=== PATIENT | female | born 1940 | race African-American/Black ===

== ENCOUNTER 2016-11-15 02:42 | Inpatient (IN) | payer MEDICARE, MEDICAID ==
[2016-11-15] VITALS (7 sets, daily range): BP systolic 149–183; BP diastolic 80–101
[~2016-11-15] VITALS: Ht 165.1 cm; Wt 103.9 kg
[2016-11-15] MEDS ORDERED: FUROSEMIDE20 M1 (03:59)
[2016-11-15] MEDS ORDERED: DIPHENOXYLATE-1 EACH (03:59)
[2016-11-15] MEDS ORDERED: COMPAZINE10 MG (03:59)
[2016-11-15] MEDS ORDERED: PANTOPRAZOLE SO40 MG (03:59)
[2016-11-15] MEDS ORDERED: CARVEDILOL12.5 MG (03:59)
[2016-11-15] MEDS ORDERED: DIAZEPAM10 MG (03:59)
[2016-11-15] MEDS ORDERED: PHENYTOIN SODI100 MG (03:59)
[2016-11-15] MEDS ORDERED: POTASSIUM CHLO20 ME1 (03:59)
[2016-11-15] MEDS ORDERED: Morphine Sulfate 4mg/ml Inj IVP PRN (04:15)
[2016-11-15] MEDS ORDERED: D5 1/2NS 1,000 ML IV SCH (05:00)
[2016-11-15] MEDS ORDERED: Nitroglycerin Subl 0.4mg tab (Bottle Of 25) SL PRN (07:15)
[2016-11-15] MEDS ORDERED: Morphine Sulfate 2mg/ml Inj IVP PRN (07:15)
[2016-11-15] MEDS ORDERED: Mylanta II UD 30ml ORAL PRN (07:15)
[2016-11-15] MEDS: D5 1/2NS 1,000 ML IV SCH ×2 (08:00→21:20)
[2016-11-15 08:44] LABS: BASOPHILS % (AUTO) 0.4 % (0.0-2.0); LYMPHOCYTES % (AUTO) 14.9 % (20.0-45.0); MEAN CORPUSCULAR HEMOGLOBIN 32.6 PG (27.0-31.0); MEAN CORPUSCULAR VOLUME 99 FL (80-99); MEAN PLATELET VOLUME 7.2 FL (6.5-10.1); MONOCYTES % (AUTO) 6.4 % (1.0-10.0); NEUTROPHILS % (AUTO) 78.2 % (45.0-75.0); PLATELET COUNT 203 K/UL (150-450); RED BLOOD COUNT 4.18 M/UL (4.20-5.40); RED CELL DISTRIBUTION WIDTH 11.4 % (11.6-14.8); WHITE BLOOD COUNT 8.8 K/UL (4.8-10.8)
[2016-11-15] MEDS: Heparin 5000 units/ml inj SUBQ SCH ×2 (08:56→22:17)
[2016-11-15] MEDS ORDERED: Carvedilol 6.25mg Tab ORAL SCH (09:00)
--- NOTE | 2016-11-15 14:21 | GI Initial Consult Note ---
History of Present Illness General Date patient seen: Nov 15, 2016 Time patient seen: 10:00 Referring physician: KRISTINA Reason for Consultation: ABDOMINAL PAIN Present Illness HPI 76 year old female patient admitted here with diagnosis of LLQ abdominal pain, N /V, diarrhea, and generalized weakness. HPI is limited, patient is a poor historian. Per pt, she's been having LLQ abdominal pain x 2 days, tender to touch. Denies any N/V at this time. Last BM was yesterday, which was loose. Hx of EGD/colonoscopy and Ex-lap lysis of adhesion here at [facility] in Nov 2012. She presents today with unremarkable labs. Abd U/S and APCT pending. Home Meds Reported Medications Diphenoxylate Hcl/Atropine (DIPHENOXYLATE-ATROPINE TABLET) 1 Each Tablet, #30 11/15/16 Phenytoin Sodium Extended* (PHENYTOIN SODIUM EXTENDED*) 100 Mg Capsule, #105 11/15/16 Prochlorperazine (COMPAZINE*) 10 Mg Tablet, #45 11/15/16 Pantoprazole* (PANTOPRAZOLE*) 40 Mg Tablet.dr, #90 11/15/16 Potassium Chloride* (K-DUR*) 20 Meq Tab.er.prt, #30 11/15/16 Carvedilol* (CARVEDILOL*) 12.5 Mg Tablet, #60 11/15/16 Furosemide* (LASIX*) 20 Mg Tablet, #30 11/15/16 Diazepam* (DIAZEPAM*) 10 Mg Tablet, #60 11/15/16 Med list reviewed/reconciled: Yes Allergies: Coded Allergies: SHELLFISH DERIVED (Verified Allergy, Mild, 11/15/16) ASPIRIN (Verified Allergy, Unknown, GI UPSET. ADVISED PT NOT TO TAKE ANYMORE, 06/12/12) CALCIUM CARBONATE (Verified Allergy, Unknown, ITCHY, REDNESS, 06/12/12) PENICILLINS (Verified Allergy, Unknown, ITCHY, REDNESS, 06/12/12) MORPHINE (Verified Adverse Reaction, Mild, NAUSEA,ALTERED MENTAL STATUS, ITCHY REDNESS, 06/12/12) Patient History Limited by: medical condition - poor historian History Provided By: Patient, Medical Record PMH Narrative GERD Hemorrhoids s/p ex lap lysis adhesion seizures cataracts L hypercholesteremia HTN PNA DVT R leg pain L breast mastectomy hx of MRSA and VRE Social History: Denies: alcohol use, drug use, other, smoking Review of Systems All Other Systems: negative except mentioned in HPI Physical Exam Vital Signs Date Time Temp Pulse Resp B/P Pulse Ox O2 Delivery O2 Flow Rate FiO2 11/15/16 04:00 100 11/15/16 04:00 97.7 20 174/95 96 Room Air Sp02 EP Interpretation: reviewed Labs Laboratory Tests Test 11/15/16 08:00 White Blood Count 8.8 K/UL (4.8-10.8) Red Blood Count 4.18 M/UL (4.20-5.40) L Hemoglobin 13.7 G/DL (12.0-16.0) Hematocrit 41.5 % (37.0-47.0) Mean Corpuscular Volume 99 FL (80-99) Mean Corpuscular Hemoglobin 32.6 PG (27.0-31.0) H Mean Corpuscular Hemoglobin Concent 33.0 G/DL (32.0-36.0) Red Cell Distribution Width 11.4 % (11.6-14.8) L Platelet Count 203 K/UL (150-450) Mean Platelet Volume 7.2 FL (6.5-10.1) Neutrophils (%) (Auto) 78.2 % (45.0-75.0) H Lymphocytes (%) (Auto) 14.9 % (20.0-45.0) L Monocytes (%) (Auto) 6.4 % (1.0-10.0) Eosinophils (%) (Auto) 0.0 % (0.0-3.0) Basophils (%) (Auto) 0.4 % (0.0-2.0) General Appearance: well appearing, no apparent distress, alert Head: normocephalic EENT: normal ENT inspection Neck: supple Respiratory: normal breath sounds, no respiratory distress Cardiovascular: normal rate Gastrointestinal: normal inspection, soft, tenderness - LLQ Rectal: deferred Neurologic: alert Psychiatric: normal inspection Skin: normal inspection, normal color, no rash, warm/dry Lymphatic: normal inspection, no adenopathy Current Medications Current Medications Medications (Trade) Dose Ordered Sig/Gabriel Route PRN Reason Start Time Stop Time Status Last Admin Dose Admin Acetaminophen (Tylenol) 650 mg Q4H PRN ORAL T>100.5 11/15/16 07:15 12/15/16 07:14 Al Hydroxide/Mg Hydroxide (Mylanta II) 30 ml Q6H PRN ORAL dyspepsia 11/15/16 07:15 12/15/16 07:14 Carvedilol 6.25 mg 6.25 mg Q12HR ORAL 11/15/16 09:00 12/15/16 08:59 11/15/16 08:55 Clonidine HCl (Catapres) 0.1 mg Q6H PRN ORAL For High Blood Pressure 11/15/16 06:15 12/15/16 06:14 11/15/16 13:55 Dextrose (Dextrose 50%) STAT PRN IV Hypoglycemia 11/15/16 07:15 12/15/16 07:14 Dextrose/Sodium Chloride (D5 0.45% NS) 1,000 ml @ 75 mls/hr [id number] IV 11/15/16 08:00 12/15/16 07:59 11/15/16 08:00 Diphenhydramine HCl (Benadryl) 25 mg Q6H PRN ORAL Itching/Pruritis 11/15/16 07:15 12/15/16 07:14 Heparin Sodium (Porcine) (Heparin 5000 units/ml) 5,000 units EVERY 12 HOURS SUBQ 11/15/16 09:00 12/15/16 08:59 11/15/16 08:56 Morphine Sulfate (Morphine Sulfate) 2 mg Q4H PRN IVP severe Pain (Pain Scale 7-10) 11/15/16 07:15 11/22/16 07:14 Nitroglycerin (Ntg) 0.4 mg Q5M X 3 DOSES PRN SL Prn Chest Pain 11/15/16 07:15 12/15/16 07:14 Ondansetron HCl (Zofran) 4 mg Q6H PRN IVP Nausea & Vomiting 11/15/16 07:15 12/15/16 07:14 Polyethylene Glycol (Miralax) 17 gm HSPRN PRN ORAL Constipation 11/15/16 21:00 12/15/16 20:59 Temazepam (Restoril) 15 mg HSPRN PRN ORAL Insomnia 11/15/16 21:00 11/22/16 20:59 GI: Plan Problems: (1) Diarrhea (2) Generalized weakness (3) Abdominal pain (4) Nausea & vomiting Plan CBC unremarkable s/p EGD/colon Nov 2012 s/p ex-lap lysis of adhesion Nov 2012 ordered APCT fu abdominal U/S okay for cardiac diet after imaging studies monitor H&H, transfuse prn H2 pain mgmt monitor for diarrhea fu labs outpatient GI procedures Corinna Villarreal N.P. Nov 15, 2016 14:21
--- NOTE | 2016-11-15 16:15 | History and Physical ---
History of Present Illness General Date patient seen: Nov 15, 2016 Reason for Hospitalization: abdominal pain Present Illness HPI 76 year old lady with recent hospitalization at [place], (under different MR number: [id number]) was taken by paramedics to [facility] with CC of LLQ abdominal pain with nauea/vomiting starting one night prior to admission. Her BP was also high at [facility] with 215/127. Her CT abdomen didn't show any acute changes. Therefore she was transferred to [facility] [place] further evaluation. she still c/o vague pain all over her rod, mostly at LLQ. no vomiting, some reported diarrhea Allergies: Coded Allergies: SHELLFISH DERIVED (Verified Allergy, Mild, 11/15/16) ASPIRIN (Verified Allergy, Unknown, GI UPSET. MD ADVISED PT NOT TO TAKE ANYMORE, 06/12/12) CALCIUM CARBONATE (Verified Allergy, Unknown, ITCHY, REDNESS, 06/12/12) PENICILLINS (Verified Allergy, Unknown, ITCHY, REDNESS, 06/12/12) MORPHINE (Verified Adverse Reaction, Mild, NAUSEA,ALTERED MENTAL STATUS, ITCHY REDNESS, 06/12/12) Medication History Miscellaneous Medications Carvedilol* (Carvedilol*), (Reported) Diazepam* (Diazepam*), (Reported) Diphenoxylate Hcl/Atropine (Diphenoxylate-Atropine Tablet), (Reported) Furosemide* (Lasix*), (Reported) Pantoprazole* (Pantoprazole*), (Reported) Phenytoin Sodium Extended* (Phenytoin Sodium Extended*), (Reported) Potassium Chloride* (K-Dur*), (Reported) Prochlorperazine (Compazine*), (Reported) Patient History Healthcare decision maker Resuscitation status Advanced Directive on File Past Medical/Surgical History Past Medical/Surgical History: (1) HTN (hypertension) (2) Humerus fracture (3) Breast cancer (4) DVT (deep venous thrombosis) Review of Systems Constitutional: Reports: no symptoms Physical Exam General Appearance: WD/WN Lines, tubes and drains: peripheral HEENT: normocephalic Neck: supple Respiratory/Chest: chest wall non-tender, lungs clear Abdomen: normal bowel sounds Genitourinary/Rectal: normal genital exam Extremities: normal range of motion Last 24 Hour Vital Signs Date Time Temp Pulse Resp B/P Pulse Ox O2 Delivery O2 Flow Rate FiO2 1/23/17 14:25 88 165/101 11/15/16 13:55 164/85 11/15/16 12:00 97.7 86 17 164/85 95 Room Air 11/15/16 08:55 99 151/84 11/15/16 08:54 99 151/84 11/15/16 08:00 98.2 102 18 163/83 95 Room Air 11/15/16 07:54 163/83 11/15/16 07:46 104 11/15/16 04:00 97.7 94 20 174/95 96 Room Air 11/15/16 04:00 100 Intake and Output 11/14/16 11/15/16 19:00 07:00 Intake Total 50 ml Balance 50 ml Intake IV Total 50 ml # Voids 1 Laboratory Tests Test 11/15/16 08:00 White Blood Count 8.8 K/UL (4.8-10.8) Red Blood Count 4.18 M/UL (4.20-5.40) L Hemoglobin 13.7 G/DL (12.0-16.0) Hematocrit 41.5 % (37.0-47.0) Mean Corpuscular Volume 99 FL (80-99) Mean Corpuscular Hemoglobin 32.6 PG (27.0-31.0) H Mean Corpuscular Hemoglobin Concent 33.0 G/DL (32.0-36.0) Red Cell Distribution Width 11.4 % (11.6-14.8) L Platelet Count 203 K/UL (150-450) Mean Platelet Volume 7.2 FL (6.5-10.1) Neutrophils (%) (Auto) 78.2 % (45.0-75.0) H Lymphocytes (%) (Auto) 14.9 % (20.0-45.0) L Monocytes (%) (Auto) 6.4 % (1.0-10.0) Eosinophils (%) (Auto) 0.0 % (0.0-3.0) Basophils (%) (Auto) 0.4 % (0.0-2.0) Height (Feet): 5 Height (Inches): 5.00 Weight (Pounds): 229 Medications Current Medications Medications (Trade) Dose Ordered Sig/Gabriel Route PRN Reason Start Time Stop Time Status Last Admin Dose Admin Acetaminophen (Tylenol) 650 mg Q4H PRN ORAL T>100.5 11/15/16 07:15 12/15/16 07:14 Al Hydroxide/Mg Hydroxide (Mylanta II) 30 ml Q6H PRN ORAL dyspepsia 11/15/16 07:15 12/15/16 07:14 Carvedilol 6.25 mg 6.25 mg Q12HR ORAL 11/15/16 09:00 12/15/16 08:59 11/15/16 08:55 Clonidine HCl (Catapres) 0.1 mg Q6H PRN ORAL For High Blood Pressure 11/15/16 06:15 12/15/16 06:14 11/15/16 13:55 Dextrose (Dextrose 50%) STAT PRN IV Hypoglycemia 11/15/16 07:15 12/15/16 07:14 Dextrose/Sodium Chloride (D5 0.45% NS) 1,000 ml @ 75 mls/hr [id number] IV 11/15/16 08:00 12/15/16 07:59 11/15/16 08:00 Diphenhydramine HCl (Benadryl) 25 mg Q6H PRN ORAL Itching/Pruritis 11/15/16 07:15 12/15/16 07:14 Famotidine (Pepcid I.v.) 20 mg Q12HR IVP 11/15/16 21:00 12/15/16 20:59 Heparin Sodium (Porcine) (Heparin 5000 units/ml) 5,000 units EVERY 12 HOURS SUBQ 11/15/16 09:00 12/15/16 08:59 11/15/16 08:56 Morphine Sulfate (Morphine Sulfate) 2 mg Q4H PRN IVP severe Pain (Pain Scale 7-10) 11/15/16 07:15 11/22/16 07:14 Nitroglycerin (Ntg) 0.4 mg Q5M X 3 DOSES PRN SL Prn Chest Pain 11/15/16 07:15 12/15/16 07:14 Ondansetron HCl (Zofran) 4 mg Q6H PRN IVP Nausea & Vomiting 11/15/16 07:15 12/15/16 07:14 Polyethylene Glycol (Miralax) 17 gm HSPRN PRN ORAL Constipation 11/15/16 21:00 12/15/16 20:59 Temazepam (Restoril) 15 mg HSPRN PRN ORAL Insomnia 11/15/16 21:00 11/22/16 20:59 Assessment/Plan Problem List: (1) Abdominal pain ICD Codes: R10.9 - Unspecified abdominal pain SNOMED: 11819791 (2) Generalized weakness ICD Codes: R53.1 - Weakness SNOMED: 25098366 (3) Diarrhea ICD Codes: R19.7 - Diarrhea, unspecified SNOMED: 51367289 (4) Nausea & vomiting ICD Codes: R11.2 - Nausea with vomiting, unspecified SNOMED: 46655623 (5) Humerus fracture ICD Codes: S42.309A - Unspecified fracture of shaft of humerus, unspecified arm , initial encounter for closed fracture SNOMED: 42117671 Qualifiers: (6) HTN (hypertension) ICD Codes: I10 - Essential (primary) hypertension SNOMED: 15411460 (7) Breast cancer ICD Codes: C50.919 - Malignant neoplasm of unspecified site of unspecified female breast SNOMED: 703691791 Qualifiers: (8) DVT (deep venous thrombosis) ICD Codes: I82.409 - Acute embolism and thrombosis of unspecified deep veins of unspecified lower extremity SNOMED: 516030277 Assessment/Plan NPO IV fluids GI evaluation check tumor markers check electrolytes Na was low at [facility] Nov 15, 2016 16:15
--- NOTE | 2016-11-15 18:34 | Cardiology Progress Note ---
Assessment/Plan Assessment/Plan abd pain nausea and vomtting htn with a reactive compnenet due to wtihdrawl form clonidine hs of dvt on anticoagulation hs of breast cnacer obeistiy tyro ct reportedly neg tts patch for nwo with ccb and lisnotpril will follwo uanlbe to find other record under [id number] Objective Last 24 Hour Vital Signs Date Time Temp Pulse Resp B/P Pulse Ox O2 Delivery O2 Flow Rate FiO2 11/15/16 16:00 98.4 90 14 149/80 96 Room Air 11/15/16 14:25 88 165/101 11/15/16 13:55 164/85 11/15/16 12:00 97.7 86 17 164/85 95 Room Air 11/15/16 08:55 99 151/84 11/15/16 08:54 99 151/84 11/15/16 08:00 98.2 102 18 163/83 95 Room Air 11/15/16 07:54 163/83 11/15/16 07:46 104 11/15/16 04:00 97.7 94 20 174/95 96 Room Air 11/15/16 04:00 100 Intake and Output 11/14/16 11/15/16 19:00 07:00 Intake Total 50 ml Balance 50 ml Intake IV Total 50 ml # Voids 1 Laboratory Tests Test 11/15/16 08:00 White Blood Count 8.8 K/UL (4.8-10.8) Red Blood Count 4.18 M/UL (4.20-5.40) L Hemoglobin 13.7 G/DL (12.0-16.0) Hematocrit 41.5 % (37.0-47.0) Mean Corpuscular Volume 99 FL (80-99) Mean Corpuscular Hemoglobin 32.6 PG (27.0-31.0) H Mean Corpuscular Hemoglobin Concent 33.0 G/DL (32.0-36.0) Red Cell Distribution Width 11.4 % (11.6-14.8) L Platelet Count 203 K/UL (150-450) Mean Platelet Volume 7.2 FL (6.5-10.1) Neutrophils (%) (Auto) 78.2 % (45.0-75.0) H Lymphocytes (%) (Auto) 14.9 % (20.0-45.0) L Monocytes (%) (Auto) 6.4 % (1.0-10.0) Eosinophils (%) (Auto) 0.0 % (0.0-3.0) Basophils (%) (Auto) 0.4 % (0.0-2.0) LORY BELL Nov 15, 2016 18:34
[2016-11-15] MEDS: Famotidine 20 MG/ 2ML VIAL IVP SCH ×2 (21:00→22:13)
[2016-11-15] MEDS ORDERED: Miralax 17gm pkt ORAL PRN (21:00)
[2016-11-15 21:48] LABS: URIC ACID 7.5 mg/dL (3.0-7.5)
[2016-11-15 21:55] LABS: FREE T3 2.2 pg/mL (2.3-4.2); THYROID STIMULATING HORMONE 0.636 uIU/mL (0.300-4.500)
[2016-11-15] MEDS: Lisinopril 20mg tab ORAL SCH (22:15)
[2016-11-16] VITALS (7 sets, daily range): BP systolic 158–196; BP diastolic 93–119
[2016-11-16] MEDS ORDERED: Sodium Bicarbonate 8.4% 50ml Inj IV ONE
[2016-11-16] MEDS ORDERED: Lidocaine 1% Plain 30 ml INJ ONE
[2016-11-16] MEDS ORDERED: Heparin 2000 units/Ns 1000ml INJ ONE
--- NOTE | 2016-11-16 02:18 | Consultation ---
DATE OF CONSULTATION: 11/15/2016 CARDIOLOGY CONSULTATION: REFERRING PHYSICIAN: Rod Iqbal M.D. REASON FOR REFERRAL: Hypertension. HISTORY OF PRESENT ILLNESS: This is an elderly female, who was apparently transferred from [facility] to [facility]. The history obtained one of an elderly female presenting because of rectal pain, abdominal pain, and vomiting especially when she sits up or stands up. She apparently had an evaluation at [facility] where she was transferred after including a CT scan that shows the liver to be normal and gallbladder is surgically absent. Spleen to be normal. Normal appendix and status post mastectomy, atherosclerotic vascular disease, otherwise unremarkable abdomen. The patient was noted to have significant elevated blood pressure and therefore, this consultation requested by Dr. Iqbal. It appears that the patient has been hesitant to take the medication because of rectal pain and abdominal pain. This led to significant elevated blood pressure. She does not have any chest pain. She does not usually gets short of breath. She does wake up because of shortness of breath at times but she is not sure that she has occasional palpitations. She had dizziness at time when she sits up. PAST MEDICAL HISTORY: Extensive and includes high blood pressure. She does not have diabetes. She has had been told she has heart attack previously many years ago. She has a history of breast cancer status post mastectomy. No history of stroke or hepatitis or tuberculosis. No asthma or emphysema. She has had a history of ulcers previously. She has had some kind of kidney problems and liver problems. There is no thyroid problems. She has had a blood clot somewhere in her legs and possibly in her lungs that is not clear. She says she is not allergic to any medications. No chart indicating. MEDICATIONS: She is taking at home include hydrochlorothiazide 12.5 mg daily, hydralazine 50 mg daily, Plavix 75 mg, clonidine 0.2 every 8 hours, Lipitor 40 mg daily, Norvasc 10 mg daily, and loratadine 10 mg daily. She is on Lomotil . She is on Coumadin. She is on benazepril HCT 20 mg/12.5 mg daily, Femara, additional 10 mg of Lotensin on daily basis, Imdur 10 mg daily, amlodipine 10 mg daily, Dilantin, triamterene, hydrochlorothiazide, Ambien, and Prevacid. Unfortunately I am not sure how many of these she actually take. She reported being here to [facility] under given medical record number, unfortunately I am unable to locate those records despite medical record number in the computer system. Blood pressure here is 149/80 to 165/101 with a heart rate in the 80s to 90s, and temperature 98.4 degrees. ALLERGIES: Aspirin, calcium carbonate, morphine, penicillin, and shell fish. SOCIAL HISTORY: She denies any smoking at the present time. She used to drink alcoholic beverages but not recently. She has a remote history of crack cocaine use she says a number of years ago, but not recently. REVIEW OF SYSTEMS: GI: As mentioned nausea and vomiting. Genitourinary: Rectal pain. Pulmonary: Occasional coughing or wheezing. Constitutional: Negative. Neurologic: Negative. She is not able to walk around much although she is capable to walk around with a walker. PHYSICAL EXAMINATION: GENERAL: Shows a morbidly obese female in no respiratory distress. She is very hard to hear. NECK: Supple. No jugular venous distention. No abdominojugular reflux noted LUNGS: Appear to be clear to auscultation and percussion . CARDIAC: S1 is normal. S2 is normal. Regular rate and rhythm. No heaves, thrills, gallops, or rubs are noted. ABDOMEN: Obese. Positive bowel sounds. Nontender. EXTREMITIES: There is no clubbing, cyanosis, nor is there any edema. NEUROLOGIC: She is awake, alert, responsive, in no apparent respiratory distress. LABORATORY STUDIES: White count is 8.8, hemoglobin 13.7, and platelet count of 203,000. The remainder of laboratories from the [facility] are not available. Her blood tests from [facility] indicate that the CBC with white count 6.2, hemoglobin 14.5, and platelet 192,000. Electrolytes, sodium 127, potassium 4.2, chloride 97, bicarbonate 23, BUN 70, creatinine 1.3, and glucose 99. Calcium is 10.5. Alkaline phosphatase was 109 and ALT 40. Lipase 41. Troponin is less than 0.02. Urinalysis is positive for leukocyte esterase and 3-5 WBCs. Her blood pressure at [place] were initially is 250/127 subsequently 158/84. CT scan as mentioned there was fairly unremarkable from [place]. ASSESSMENT AND PLAN: 1. Abdominal pain . 2. Poor p.o. intake. 3. Medication noncompliance secondary to above. 4. 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 5. Obesity . 6. History of breast cancer. 7. History of deep venous thrombosis on anticoagulation. PLAN: Dr. Iqbal, this patient was seen in cardiac consultation. Unfortunately, I am unable to find the patient's old record through the number that was listed. Nevertheless, the blood pressure appears to be controlled and would adjust her medications. She should be on clonidine to avoid withdrawal hypertension. She will be started back on Norvasc and ILEANA inhibitor as well as blood pressure arose only she starts taking medications p.o. The dose of medication will be readjusted as necessary. At the present time, she is somewhat hesitant to take medications. Therefore I will start the patient on TTS patch for the time being while she is NPO to avoid withdrawal reaction if she is not able to take p.o. medications. Davon Mena M.D. DR: Loyd JOB#: [id number] CC:
[2016-11-16 02:25] LABS: APPEARANCE,URINE SLIGHTLY CLOUDY; KETONES,URINE 3+ (NEGATIVE); LEUKOCYTE ESTERASE ,URINE 3+ (NEGATIVE); NITRITE,URINE NEGATIVE (NEGATIVE); PH,URINE 5 (4.5-8.0); PROTEIN,URINE 3+ (NEGATIVE); UROBILINOGEN,URINE 1 MG/DL (0.0-1.0)
[2016-11-16 02:33] LABS: WBC,URINE 20-30 /HPF (0 - 2)
[2016-11-16 02:34] LABS: BACTERIA,URINE MODERATE /HPF; COARSE GRANULAR CASTS,URINE 0-2 /LPF; FINE GRANULAR CASTS,URINE 0-2 /LPF; HYALINE CASTS, URINE 0-2 /LPF; SQUAMOUS EPITHELIAL CELL,UR MODERATE /LPF (NONE/OCC)
[2016-11-16] MEDS: Heparin 5000 units/ml inj SUBQ SCH ×2 (09:00→21:00)
[2016-11-16] MEDS: Famotidine 20 MG/ 2ML VIAL IVP SCH ×3 (09:00→21:17)
[2016-11-16] MEDS: Lisinopril 20mg tab ORAL SCH ×2 (09:04→17:47)
--- NOTE | 2016-11-16 09:06 | Diagnostic Imaging Report ---
Indication: Abdominal pain Technique: Spiral acquisitions obtained through the abdomen and pelvis. Patient given oral contrast. No IV contrast utilized, per referring physician request.. Multiplanar reconstructions were generated. Total dose length product 989 mGycm. CTDIvol(s) 18 mGy Comparison: 10/30/2013 contrast study Findings: The appendix is normal. There is no evidence of diverticulosis or diverticulitis. There is suggestion of at least mild wall thickening of the distal sigmoid and rectum. However, no pericolonic inflammation is demonstrated. No small bowel distention or small bowel wall thickening. No free or loculated intraperitoneal air or fluid is demonstrated. The distal esophagus, stomach are unremarkable. There are multiple duodenal diverticula. Lack of IV contrast limits assessment of the solid organs. The liver is grossly unremarkable. There are cholecystectomy clips. The common bile duct is dilated, measuring 15 mm diameter. However, this is unchanged from the previous exam end of downstream obstructive pathology is evident. The pancreas, spleen, adrenals are unremarkable. The kidneys demonstrate mild contour lobulation, unchanged from the prior exam. No retroperitoneal or mesenteric mass or adenopathy. No pelvic mass or adenopathy. The uterus is absent, presumably surgically. The bladder is unremarkable. The included lung bases demonstrate minimal compressive atelectatic changes, are otherwise unremarkable. The heart is enlarged. Bones are unremarkable except for minimal degenerative spondylosis changes. The left breast is not visualized, likely surgically absent given presence of surgical clips in the anterolateral left chest wall. Small subcutaneous opacities in the anterior abdominal wall likely represent recent insulin injections Impression: Equivocal mild wall thickening of the distal sigmoid and rectum, may be an artifact of under distention but could indicate proctocolitis. Correlate with clinical findings No other acute abnormal Evidence of prior cholecystectomy. Dilated extrahepatic bile ducts, likely related to such and unchanged. Downstream obstructive pathology is not visualized although not completely excludable. Correlate with liver function tests Cardiomegaly Incidental findings as noted, including evidence of recent subcutaneous injections, evidence of prior left mastectomy, minimal compressive pulmonary parenchymal atelectatic changes, evidence of prior hysterectomy, multiple duodenal diverticula The CT scanner at [facility] is accredited by the [employer] [place] [employer] and the scans are performed using protocols designed to limit radiation exposure to as low as reasonably achievable to attain images of sufficient resolution adequate for diagnostic evaluation.
[2016-11-16 09:29] LABS: BASOPHILS % (AUTO) 0.4 % (0.0-2.0); EOSINOPHILS % (AUTO) 0.1 % (0.0-3.0); LYMPHOCYTES % (AUTO) 13.3 % (20.0-45.0); MEAN CORPUSCULAR HEMOGLOBIN 33.2 PG (27.0-31.0); MEAN CORPUSCULAR HGB CONC 34.1 G/DL (32.0-36.0); MEAN CORPUSCULAR VOLUME 97 FL (80-99); MEAN PLATELET VOLUME 6.9 FL (6.5-10.1); MONOCYTES % (AUTO) 6.5 % (1.0-10.0); NEUTROPHILS % (AUTO) 79.8 % (45.0-75.0); PLATELET COUNT 198 K/UL (150-450); RED BLOOD COUNT 4.02 M/UL (4.20-5.40); RED CELL DISTRIBUTION WIDTH 11.1 % (11.6-14.8); WHITE BLOOD COUNT 9.5 K/UL (4.8-10.8)
[2016-11-16 09:38] LABS: INR 1.3 (0.9-1.1)
[2016-11-16 09:43] LABS: ALANINE AMINOTRANSFERASE 47 U/L (3-33); AMYLASE 46 U/L (10-110); ANION GAP 16 (5-15); ASPARTATE AMINO TRANSFERASE 53 U/L (5-40); CALCIUM 10.5 mg/dL (8.6-10.2); CARBON DIOXIDE 26 mEQ/L (20-30); CHLORIDE 88 mEQ/L (98-107); CREATININE 1.3 mg/dL (0.5-0.9); HEMOLYSIS 18; LIPASE 56 U/L (< 60); POTASSIUM 4.1 mEQ/L (3.4-4.9); SODIUM 130 mEQ/L (135-145)
[2016-11-16 09:44] LABS: TROPONIN I < 0.30 ng/mL (<=0.30)
[2016-11-16 09:47] LABS: MAGNESIUM 1.5 mg/dL (1.7-2.5)
[2016-11-16] MEDS: D5 1/2NS 1,000 ML IV SCH (12:23)
--- NOTE | 2016-11-16 12:37 | Cardiology Progress Note ---
Assessment/Plan Assessment/Plan 1. Abdominal pain . 2. Poor p.o. intake. 3. Medication noncompliance secondary to above. 4. 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 5. Obesity . 6. History of breast cancer. 7. History of deep venous thrombosis on anticoagulation la ct reportedly neg tts patch for nwo lisnotpril 20 bid norvasc 5 mg bid some elevated bp related to ns loading add hydralazien may need some tiem to respond to abov e uanlbe to find other record under [id number] tele neg Subjective Cardiovascular: Denies: lightheadedness Respiratory: Reports: shortness of breath Gastrointestinal/Abdominal: Reports: abdominal pain, nausea Genitourinary: Denies: burning Objective Last 24 Hour Vital Signs Date Time Temp Pulse Resp B/P Pulse Ox O2 Delivery O2 Flow Rate FiO2 11/16/16 11:38 196/106 11/16/16 11:32 98.0 91 20 196/106 96 Room Air 11/16/16 09:04 160/98 11/16/16 08:09 99.3 90 18 160/98 99 Room Air 11/16/16 04:00 98.1 97 20 167/95 100 Room Air 11/16/16 04:00 84 11/16/16 03:36 167/95 11/16/16 00:00 98.4 96 16 170/97 96 Room Air 11/16/16 00:00 94 11/15/16 22:15 166/104 11/15/16 22:14 166/104 11/15/16 20:15 98.1 90 15 183/93 97 Room Air 11/15/16 20:00 100 11/15/16 19:30 183/93 11/15/16 16:00 98.4 90 14 149/80 96 Room Air 11/15/16 16:00 87 11/15/16 14:25 88 165/101 11/15/16 13:55 164/85 General Appearance: no apparent distress, alert Neck: supple Cardiovascular: normal rate, regular rhythm Respiratory/Chest: lungs clear, normal breath sounds Abdomen: normal bowel sounds, non tender, soft Extremities: no swelling Intake and Output 11/15/16 11/16/16 19:00 07:00 Intake Total 825 ml 390 ml Balance 825 ml 390 ml Intake Oral 240 ml IV Total 825 ml 150 ml # Voids 3 2 # Bowel Movements 1 Laboratory Tests Test 11/15/16 20:18 11/16/16 02:11 11/16/16 09:20 Plasma/Serum Osmolality Pending Uric Acid 7.5 mg/dL (3.0-7.5) Thyroid Stimulating Hormone (TSH) 0.636 uIU/mL (0.300-4.500) Free Thyroxine 1.62 ng/dL (0.86-1.85) Free Triiodothyronine 2.2 pg/mL (2.3-4.2) L Cortisol Pending Urine Color Yellow Urine Appearance Slightly cloudy Urine pH 5 (4.5-8.0) Urine Specific [place] 1.020 (1.005-1.035) Urine Protein 3+ (NEGATIVE) H Urine Glucose (UA) Negative (NEGATIVE) Urine Ketones 3+ (NEGATIVE) H Urine Occult Blood 3+ (NEGATIVE) H Urine Nitrite Negative (NEGATIVE) Urine Bilirubin Negative (NEGATIVE) Urine Urobilinogen 1 MG/DL (0.0-1.0) H Urine Leukocyte Esterase 3+ (NEGATIVE) H Urine RBC 2-4 /HPF (0 - 2) H Urine WBC 20-30 /HPF (0 - 2) H Urine Squamous Epithelial Cells Moderate /LPF (NONE/OCC) H Urine Bacteria Moderate /HPF (NONE) H Urine Hyaline Casts 0-2 /LPF (NONE) H Urine Fine Granular Casts 0-2 /LPF (NONE) H Urine Coarse Granular Casts 0-2 /LPF (NONE) H Urine Osmolality Pending Urine Random Sodium 42 mmol/L White Blood Count 9.5 K/UL (4.8-10.8) Red Blood Count 4.02 M/UL (4.20-5.40) L Hemoglobin 13.3 G/DL (12.0-16.0) Hematocrit 39.1 % (37.0-47.0) Mean Corpuscular Volume 97 FL (80-99) Mean Corpuscular Hemoglobin 33.2 PG (27.0-31.0) H Mean Corpuscular Hemoglobin Concent 34.1 G/DL (32.0-36.0) Red Cell Distribution Width 11.1 % (11.6-14.8) L Platelet Count 198 K/UL (150-450) Mean Platelet Volume 6.9 FL (6.5-10.1) Neutrophils (%) (Auto) 79.8 % (45.0-75.0) H Lymphocytes (%) (Auto) 13.3 % (20.0-45.0) L Monocytes (%) (Auto) 6.5 % (1.0-10.0) Eosinophils (%) (Auto) 0.1 % (0.0-3.0) Basophils (%) (Auto) 0.4 % (0.0-2.0) Prothrombin Time 13.0 SEC (9.30-11.50) H Prothromb Time International Ratio 1.3 (0.9-1.1) H Activated Partial Thromboplast Time 27 SEC (23-33) Sodium Level 130 mEQ/L (135-145) L Potassium Level 4.1 mEQ/L (3.4-4.9) Chloride Level 88 mEQ/L (98-107) L Carbon Dioxide Level 26 mEQ/L (20-30) Anion Gap 16 (5-15) H Blood Urea Nitrogen 22 mg/dL (7-23) Creatinine 1.3 mg/dL (0.5-0.9) H Estimat Glomerular Filtration Rate mL/min (>60) Glucose Level 162 mg/dL (74-106) H Calcium Level 10.5 mg/dL (8.6-10.2) H Phosphorus Level 3.0 mg/dL (2.5-4.8) Magnesium Level 1.5 mg/dL (1.7-2.5) L Total Bilirubin 0.8 mg/dL (0.0-1.2) Aspartate Amino Transf (AST/SGOT) 53 U/L (5-40) H Alanine Aminotransferase (ALT/SGPT) 47 U/L (3-33) H Alkaline Phosphatase 117 U/L (35-104) H Troponin I < 0.30 ng/mL (<=0.30) Total Protein 8.0 g/dL (6.6-8.7) Albumin 4.0 g/dL (3.5-5.2) Globulin 4.0 g/dL Albumin/Globulin Ratio 1.0 (1.0-2.7) Amylase Level 46 U/L (10-110) Lipase 56 U/L (< 60) LORY BELL Nov 16, 2016 12:37
[2016-11-16] MEDS: HydrALAZINE 50mg tab ORAL SCH ×2 (14:04→21:17)
[2016-11-16] MEDS ORDERED: Bisacodyl EC 5mg tab ORAL ONE (16:00)
[2016-11-16] MEDS ORDERED: Polyethylene Glycol 238gm bottle ORAL ONE (16:00)
--- NOTE | 2016-11-16 16:27 | GI Progress Note ---
Assessment/Plan Problems: (1) Sigmoid thickening ICD Codes: K63.9 - Disease of intestine, unspecified SNOMED: 983943467 (2) Abdominal pain ICD Codes: R10.9 - Unspecified abdominal pain SNOMED: 57884291 (3) Nausea & vomiting ICD Codes: R11.2 - Nausea with vomiting, unspecified SNOMED: 64770579 (4) Generalized weakness ICD Codes: R53.1 - Weakness SNOMED: [id number] Status: stable Status Narrative Discussed with Dr. Murray. Assessment/Plan CBC unremarkable s/p EGD/colon Nov 2012 s/p ex-lap lysis of adhesion Nov [address] noted pt scheduled for colonoscopy tomorrow - CLD today, NPO @ [facility]. fu abdominal U/S monitor H&H, transfuse prn H2 pain mgmt fu labs Subjective Gastrointestinal/Abdominal: Reports: abdominal pain Subjective rectal pain Objective Last 24 Hour Vital Signs Date Time Temp Pulse Resp B/P Pulse Ox O2 Delivery O2 Flow Rate FiO2 11/16/16 16:00 97.9 92 22 158/93 96 Room Air 11/16/16 14:04 166/104 11/16/16 12:47 91 166/104 11/16/16 12:45 166/104 11/16/16 12:00 94 11/16/16 11:38 196/106 11/16/16 11:32 98.0 91 20 196/106 96 Room Air 11/16/16 09:04 160/98 11/16/16 08:09 99.3 90 18 160/98 99 Room Air 11/16/16 04:00 98.1 97 20 167/95 100 Room Air 11/16/16 04:00 84 11/16/16 03:36 167/95 11/16/16 00:00 98.4 96 16 170/97 96 Room Air 11/16/16 00:00 94 11/15/16 22:15 166/104 11/15/16 22:14 166/104 11/15/16 20:15 98.1 90 15 183/93 97 Room Air 11/15/16 20:00 100 11/15/16 19:30 183/93 Intake and Output 11/15/16 11/16/16 19:00 07:00 Intake Total 825 ml 390 ml Balance 825 ml 390 ml Intake Oral 240 ml IV Total 825 ml 150 ml # Voids 3 2 # Bowel Movements 1 Laboratory Tests Test 11/15/16 20:18 11/16/16 02:11 11/16/16 09:20 Plasma/Serum Osmolality Pending Uric Acid 7.5 mg/dL (3.0-7.5) Thyroid Stimulating Hormone (TSH) 0.636 uIU/mL (0.300-4.500) Free Thyroxine 1.62 ng/dL (0.86-1.85) Free Triiodothyronine 2.2 pg/mL (2.3-4.2) L Cortisol Pending Urine Color Yellow Urine Appearance Slightly cloudy Urine pH 5 (4.5-8.0) Urine Specific [place] 1.020 (1.005-1.035) Urine Protein 3+ (NEGATIVE) H Urine Glucose (UA) Negative (NEGATIVE) Urine Ketones 3+ (NEGATIVE) H Urine Occult Blood 3+ (NEGATIVE) H Urine Nitrite Negative (NEGATIVE) Urine Bilirubin Negative (NEGATIVE) Urine Urobilinogen 1 MG/DL (0.0-1.0) H Urine Leukocyte Esterase 3+ (NEGATIVE) H Urine RBC 2-4 /HPF (0 - 2) H Urine WBC 20-30 /HPF (0 - 2) H Urine Squamous Epithelial Cells Moderate /LPF (NONE/OCC) H Urine Bacteria Moderate /HPF (NONE) H Urine Hyaline Casts 0-2 /LPF (NONE) H Urine Fine Granular Casts 0-2 /LPF (NONE) H Urine Coarse Granular Casts 0-2 /LPF (NONE) H Urine Osmolality Pending Urine Random Sodium 42 mmol/L White Blood Count 9.5 K/UL (4.8-10.8) Red Blood Count 4.02 M/UL (4.20-5.40) L Hemoglobin 13.3 G/DL (12.0-16.0) Hematocrit 39.1 % (37.0-47.0) Mean Corpuscular Volume 97 FL (80-99) Mean Corpuscular Hemoglobin 33.2 PG (27.0-31.0) H Mean Corpuscular Hemoglobin Concent 34.1 G/DL (32.0-36.0) Red Cell Distribution Width 11.1 % (11.6-14.8) L Platelet Count 198 K/UL (150-450) Mean Platelet Volume 6.9 FL (6.5-10.1) Neutrophils (%) (Auto) 79.8 % (45.0-75.0) H Lymphocytes (%) (Auto) 13.3 % (20.0-45.0) L Monocytes (%) (Auto) 6.5 % (1.0-10.0) Eosinophils (%) (Auto) 0.1 % (0.0-3.0) Basophils (%) (Auto) 0.4 % (0.0-2.0) Prothrombin Time 13.0 SEC (9.30-11.50) H Prothromb Time International Ratio 1.3 (0.9-1.1) H Activated Partial Thromboplast Time 27 SEC (23-33) Sodium Level 130 mEQ/L (135-145) L Potassium Level 4.1 mEQ/L (3.4-4.9) Chloride Level 88 mEQ/L (98-107) L Carbon Dioxide Level 26 mEQ/L (20-30) Anion Gap 16 (5-15) H Blood Urea Nitrogen 22 mg/dL (7-23) Creatinine 1.3 mg/dL (0.5-0.9) H Estimat Glomerular Filtration Rate mL/min (>60) Glucose Level 162 mg/dL (74-106) H Calcium Level 10.5 mg/dL (8.6-10.2) H Phosphorus Level 3.0 mg/dL (2.5-4.8) Magnesium Level 1.5 mg/dL (1.7-2.5) L Total Bilirubin 0.8 mg/dL (0.0-1.2) Aspartate Amino Transf (AST/SGOT) 53 U/L (5-40) H Alanine Aminotransferase (ALT/SGPT) 47 U/L (3-33) H Alkaline Phosphatase 117 U/L (35-104) H Troponin I < 0.30 ng/mL (<=0.30) Total Protein 8.0 g/dL (6.6-8.7) Albumin 4.0 g/dL (3.5-5.2) Globulin 4.0 g/dL Albumin/Globulin Ratio 1.0 (1.0-2.7) Amylase Level 46 U/L (10-110) Lipase 56 U/L (< 60) Height (Feet): 5 Height (Inches): 5.00 Weight (Pounds): 229 General Appearance: no apparent distress, obese Cardiovascular: normal rate Respiratory/Chest: normal breath sounds, no respiratory distress Abdominal Exam: normal bowel sounds, non tender, soft Objective Procedure: CT Abdomen Pelvis WO Contrast Indication: Abdominal pain Impression: Equivocal mild wall thickening of the distal sigmoid and rectum, may be an artifact of under distention but could indicate proctocolitis. Correlate with clinical findings No other acute abnormal Evidence of prior cholecystectomy. Dilated extrahepatic bile ducts, likely related to such and unchanged. Downstream obstructive pathology is not visualized although not completely excludable. Correlate with liver function tests Cardiomegaly Incidental findings as noted, including evidence of recent subcutaneous injections, evidence of prior left mastectomy, minimal compressive pulmonary parenchymal atelectatic changes, evidence of prior hysterectomy, multiple duodenal diverticula Corinna Villarreal N.P. Nov 16, 2016 16:27
--- NOTE | 2016-11-16 17:20 | Pulmonology Progress Note ---
Assessment/Plan Problems: (1) Abdominal pain (2) Generalized weakness (3) Diarrhea (4) Nausea & vomiting (5) Humerus fracture (6) HTN (hypertension) (7) Breast cancer (8) DVT (deep venous thrombosis) Assessment/Plan bp is better controlled still not eating well. f/u Gi recommendation pain control pt/ot Subjective ROS Limited/Unobtainable: No Constitutional: Reports: no symptoms HEENT: Repors: no symptoms Respiratory: Reports: no symptoms Cardiovascular: Reports: no symptoms Allergies: Coded Allergies: SHELLFISH DERIVED (Verified Allergy, Mild, 11/15/16) ASPIRIN (Verified Allergy, Unknown, GI UPSET. MD ADVISED PT NOT TO TAKE ANYMORE, 06/12/12) CALCIUM CARBONATE (Verified Allergy, Unknown, ITCHY, REDNESS, 06/12/12) PENICILLINS (Verified Allergy, Unknown, ITCHY, REDNESS, 06/12/12) MORPHINE (Verified Adverse Reaction, Mild, NAUSEA,ALTERED MENTAL STATUS, ITCHY REDNESS, 06/12/12) Objective Last 24 Hour Vital Signs Date Time Temp Pulse Resp B/P Pulse Ox O2 Delivery O2 Flow Rate FiO2 11/16/16 16:00 97.9 92 22 158/93 96 Room Air 11/16/16 14:04 166/104 11/16/16 12:47 91 166/104 11/16/16 12:45 166/104 11/16/16 12:00 94 11/16/16 11:38 196/106 11/16/16 11:32 98.0 91 20 196/106 96 Room Air 11/16/16 09:04 160/98 11/16/16 08:09 99.3 90 18 160/98 99 Room Air 11/16/16 04:00 98.1 97 20 167/95 100 Room Air 11/16/16 04:00 84 11/16/16 03:36 167/95 11/16/16 00:00 98.4 96 16 170/97 96 Room Air 11/16/16 00:00 94 11/15/16 22:15 166/104 11/15/16 22:14 166/104 11/15/16 20:15 98.1 90 15 183/93 97 Room Air 11/15/16 20:00 100 11/15/16 19:30 183/93 Intake and Output 11/15/16 11/16/16 19:00 07:00 Intake Total 825 ml 390 ml Balance 825 ml 390 ml Intake Oral 240 ml IV Total 825 ml 150 ml # Voids 3 2 # Bowel Movements 1 General Appearance: WD/WN HEENT: normocephalic, atraumatic Respiratory/Chest: chest wall non-tender, lungs clear Cardiovascular: normal peripheral pulses, normal rate Abdomen: normal bowel sounds, soft, non tender Extremities: no cyanosis, no clubbing 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 Laboratory Tests 11/15/16 20:18: Plasma/Serum Osmolality [Pending], Uric Acid 7.5, Thyroid Stimulating Hormone ( TSH) 0.636, Free Thyroxine 1.62, Free Triiodothyronine 2.2L, Cortisol [Pending] 11/16/16 02:11: Urine Color Yellow, Urine Appearance Slightly cloudy, Urine pH 5, Urine Specific [place] 1.020, Urine Protein 3+H, Urine Glucose (UA) Negative, Urine Ketones 3+H, Urine Occult Blood 3+H, Urine Nitrite Negative, Urine Bilirubin Negative, Urine Urobilinogen 1H, Urine Leukocyte Esterase 3+H, Urine RBC 2-4H, Urine WBC 20-30H, Urine Squamous Epithelial Cells ModerateH, Urine Bacteria ModerateH, Urine Hyaline Casts 0-2H, Urine Fine Granular Casts 0-2H, Urine Coarse Granular Casts 0-2H, Urine Osmolality [Pending], Urine Random Sodium 42 11/16/16 09:20: White Blood Count 9.5, Red Blood Count 4.02L, Hemoglobin 13.3, Hematocrit 39.1, Mean Corpuscular Volume 97, Mean Corpuscular Hemoglobin 33.2H, Mean Corpuscular Hemoglobin Concent 34.1, Red Cell Distribution Width 11.1L, Platelet Count 198, Mean Platelet Volume 6.9, Neutrophils (%) (Auto) 79.8H, Lymphocytes (%) (Auto) 13.3L, Monocytes (%) (Auto) 6.5, Eosinophils (%) (Auto) 0.1, Basophils (%) (Auto ) 0.4, Prothrombin Time 13.0H, Prothromb Time International Ratio 1.3H, Activated Partial Thromboplast Time 27, Sodium Level 130L, Potassium Level 4.1, Chloride Level 88L, Carbon Dioxide Level 26, Anion Gap 16H, Blood Urea Nitrogen 22, Creatinine 1.3H, Estimat Glomerular Filtration Rate , Glucose Level 162H, Calcium Level 10.5H, Phosphorus Level 3.0, Magnesium Level 1.5L, Total Bilirubin 0.8, Aspartate Amino Transf (AST/SGOT) 53H, Alanine Aminotransferase ( ALT/SGPT) 47H, Alkaline Phosphatase 117H, Troponin I < 0.30, Total Protein 8.0, Albumin 4.0, Globulin 4.0, Albumin/Globulin Ratio 1.0, Amylase Level 46, Lipase 56 Current Medications Medications (Trade) Dose Ordered Sig/Gabriel Route PRN Reason Start Time Stop Time Status Last Admin Dose Admin Acetaminophen (Tylenol) 650 mg Q4H PRN ORAL T>100.5 11/15/16 07:15 12/15/16 07:14 Al Hydroxide/Mg Hydroxide (Mylanta II) 30 ml Q6H PRN ORAL dyspepsia 11/15/16 07:15 12/15/16 07:14 Amlodipine Besylate (Norvasc) 5 mg BID ORAL 11/16/16 18:00 12/16/16 17:59 Clonidine HCl (Catapres TTS-2) 1 patch QWEEK TDERMAL 11/15/16 21:00 12/15/16 20:59 11/15/16 22:14 Clonidine HCl 0.1 mg 0.1 mg Q6H PRN ORAL For High Blood Pressure 11/15/16 06:15 12/15/16 06:14 11/16/16 11:38 Dextrose (Dextrose 50%) STAT PRN IV Hypoglycemia 11/15/16 07:15 12/15/16 07:14 Dextrose/Sodium Chloride (D5 0.45% NS) 1,000 ml @ 75 mls/hr [id number] IV 11/15/16 08:00 12/15/16 07:59 11/16/16 12:23 Diphenhydramine HCl (Benadryl) 25 mg Q6H PRN ORAL Itching/Pruritis 11/15/16 07:15 12/15/16 07:14 Famotidine (Pepcid I.v.) 20 mg Q12HR IVP 11/15/16 21:00 12/15/16 20:59 Heparin Sodium (Porcine) (Heparin 5000 units/ml) 5,000 units EVERY 12 HOURS SUBQ 11/15/16 09:00 12/15/16 08:59 11/15/16 22:17 Hydralazine HCl (Apresoline) 50 mg Q8HR ORAL 11/16/16 14:00 12/16/16 13:59 11/16/16 14:04 Lisinopril (Prinivil) 20 mg BID ORAL 11/15/16 21:00 12/15/16 20:59 11/16/16 09:04 Morphine Sulfate (Morphine Sulfate) 2 mg Q4H PRN IVP severe Pain (Pain Scale 7-10) 11/15/16 07:15 11/22/16 07:14 Nitroglycerin (Ntg) 0.4 mg Q5M X 3 DOSES PRN SL Prn Chest Pain 11/15/16 07:15 12/15/16 07:14 Ondansetron HCl (Zofran) 4 mg Q6H PRN IVP Nausea & Vomiting 11/15/16 07:15 12/15/16 07:14 Polyethylene Glycol (Miralax) 17 gm HSPRN PRN ORAL Constipation 11/15/16 21:00 12/15/16 20:59 Temazepam (Restoril) 15 mg HSPRN PRN ORAL Insomnia 11/15/16 21:00 11/22/16 20:59 ISAURA GARCIA Nov 16, 2016 17:20
--- NOTE | 2016-11-16 19:13 | Consultation ---
Consult Note Consult Note asked to evaluate at the request of Dr Iqbal for renal failure and electrolyte imbalances 76 year old lady with recent hospitalization at [place], (under different MR number: [id number]) was taken by paramedics to [facility] with CC of LLQ abdominal pain with nauea/vomiting starting one night prior to admission. Her BP was also high at [place] with 215/127. Her CT abdomen didn't show any acute changes. Therefore she was transferred to [facility] for further evaluation. she still c/o vague pain all over her rod, mostly at LLQ. no vomiting, some reported diarrhea Allergies: Coded Allergies: SHELLFISH DERIVED (Verified Allergy, Mild, 11/15/16) ASPIRIN (Verified Allergy, Unknown, GI UPSET. MD ADVISED PT NOT TO TAKE ANYMORE, 06/12/12) CALCIUM CARBONATE (Verified Allergy, Unknown, ITCHY, REDNESS, 06/12/12) PENICILLINS (Verified Allergy, Unknown, ITCHY, REDNESS, 06/12/12) MORPHINE (Verified Adverse Reaction, Mild, NAUSEA,ALTERED MENTAL STATUS, ITCHY REDNESS, 06/12/12) Patient examined , data reviewed Assessment/Plan Status Renal failure- Low Mag - Low Na- High Ca- HTN DM other: (1) Abdominal pain (2) Generalized weakness (3) Diarrhea (4) Nausea & vomiting (5) Humerus fracture (6) Breast cancer (7) DVT (deep venous thrombosis) Plan: Mag IV change IV to NS- Monitor renal parameters. Electrolytes, Ca and Phos Avoid Nephrotoxics- Adjust BP meds- VY ALMANZA Nov 16, 2016 19:13
[2016-11-17] VITALS (11 sets, daily range): BP systolic 144–165; BP diastolic 76–102
[2016-11-17] MEDS: HydrALAZINE 50mg tab ORAL SCH ×3 (05:57→21:43)
[2016-11-17 07:41] LABS: BASOPHILS % (AUTO) 0.5 % (0.0-2.0); EOSINOPHILS % (AUTO) 0.4 % (0.0-3.0); LYMPHOCYTES % (AUTO) 13.4 % (20.0-45.0); MEAN CORPUSCULAR HEMOGLOBIN 33.2 PG (27.0-31.0); MEAN CORPUSCULAR HGB CONC 34.9 G/DL (32.0-36.0); MEAN CORPUSCULAR VOLUME 95 FL (80-99); MEAN PLATELET VOLUME 7.1 FL (6.5-10.1); MONOCYTES % (AUTO) 9.5 % (1.0-10.0); NEUTROPHILS % (AUTO) 76.2 % (45.0-75.0); PLATELET COUNT 171 K/UL (150-450); RED BLOOD COUNT 3.49 M/UL (4.20-5.40); RED CELL DISTRIBUTION WIDTH 11.3 % (11.6-14.8); WHITE BLOOD COUNT 12.3 K/UL (4.8-10.8)
[2016-11-17 07:45] LABS: INR 1.3 (0.9-1.1); PROTHROMBIN TIME 13.4 SEC (9.30-11.50)
[2016-11-17 07:51] LABS: HEMOGLOBIN A1C 5.6 % (< 6.0)
[2016-11-17 07:54] LABS: ALANINE AMINOTRANSFERASE 43 U/L (3-33); ANION GAP 17 (5-15); ASPARTATE AMINO TRANSFERASE 42 U/L (5-40); CALCIUM 9.8 mg/dL (8.6-10.2); CARBON DIOXIDE 23 mEQ/L (20-30); CHLORIDE 90 mEQ/L (98-107); CHOLESTEROL 193 mg/dL (< 200); CRP QUANT 3.8 mg/dL (< 0.5); HEMOLYSIS 1; LDL CHOLESTEROL (CALC.) 115 mg/dL (60-99); MAGNESIUM 2.1 mg/dL (1.7-2.5); PHOSPHORUS 2.4 mg/dL (2.5-4.8); POTASSIUM 3.3 mEQ/L (3.4-4.9); SODIUM 130 mEQ/L (135-145); TOTAL PROTEIN 6.9 g/dL (6.6-8.7); URIC ACID 5.8 mg/dL (3.0-7.5)
[2016-11-17] MEDS: Lisinopril 20mg tab ORAL SCH ×2 (08:52→18:12)
[2016-11-17] MEDS: Famotidine 20 MG/ 2ML VIAL IVP SCH ×2 (08:52→21:43)
[2016-11-17] MEDS: Heparin 5000 units/ml inj SUBQ SCH ×2 (08:52→21:48)
--- NOTE | 2016-11-17 11:47 | Pre-Procedure Note/Attestation ---
Pre-Procedure Note/Attestation Complete Prior to Procedure Planned Procedure: not applicable Procedure Narrative: colonoscopy Indications for Procedure Pre-Operative Diagnosis: anemia Attestation I attest that I discussed the nature of the procedure; its benefits; risks and complications; and alternatives (and the risks and benefits of such alternatives ), prior to the procedure, with the patient (or the patient's legal healthcare sales representative). I attest that, if there was a reasonable possibility of needing a blood transfusion, the patient (or the patient's legal healthcare sales representative) was given the [facility] standardized written summary, pursuant to the [place] Blood Safety Act ([place] Health and Safety Code # 1645, as amended). I attest that I re-evaluated the patient just prior to the surgery and that there has been no change in the patient's H&P, except as documented below: HETAL LI Nov 17, 2016 11:47
--- NOTE | 2016-11-17 11:58 | Anethesia Preoperative Eval ---
Anesthesia Pre-op PMH/ROS General Date of Evaluation: Nov 17, 2016 Time of Evaluation: 11:57 Anesthesiologist: alexys ASA Score: ASA 3 Mallampati Score Class I : Soft palate, uvula, fauces, pillars visible Class II: Soft palate, uvula, fauces visible Class III: Soft palate, base of uvula visible Class IV: Only hard plate visible Mallampati Classification: Class III Surgeon: garett Diagnosis: anemia Surgical Procedure: colonoscopy Family History: no anesthesia problems Allergies: Coded Allergies: SHELLFISH DERIVED (Verified Allergy, Mild, 11/15/16) ASPIRIN (Verified Allergy, Unknown, GI UPSET. MD ADVISED PT NOT TO TAKE ANYMORE, 06/12/12) CALCIUM CARBONATE (Verified Allergy, Unknown, ITCHY, REDNESS, 06/12/12) PENICILLINS (Verified Allergy, Unknown, ITCHY, REDNESS, 06/12/12) MORPHINE (Verified Adverse Reaction, Mild, NAUSEA,ALTERED MENTAL STATUS, ITCHY REDNESS, 06/12/12) Medications: see eMAR Past Medical History Cardiovascular: Reports: HTN Pulmonary: Denies: COPD, DONG, asthma, other Neurologic/Psychiatric: Denies: CVA, TIA, dementia, depression/anxiety, other Endocrine: Denies: DM, hypothyroidism, other, steroids HEENT: Denies: [place] (L), [place] (R), cataract (L), cataract (R), glaucoma, other Hematology/Immune: Reports: anemia Other: obesity PMH Narrative: 1. Abdominal pain . 2. Poor p.o. intake. 3. Medication noncompliance secondary to above. 4. 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 5. Obesity . 6. History of breast cancer. 7. History of deep venous thrombosis on anticoagulation Anesthesia Pre-op Phys. Exam Physician Exam Last Vital Signs Date Time Temp Pulse Resp B/P Pulse Ox O2 Delivery O2 Flow Rate FiO2 11/17/16 08:52 99 155/76 11/17/16 08:28 97.7 20 97 Room Air Constitutional: NAD Neurologic: CN 2-12 intact Cardiovascular: RRR Respiratory: CTA Gastrointestinal: S/NT/ND Airway Exam Dentures: no lower, no upper Anesthesia Pre-op A/P Labs Hematology Test 11/17/16 06:40 White Blood Count 12.3 K/UL (4.8-10.8) H Red Blood Count 3.49 M/UL (4.20-5.40) L Hemoglobin 11.6 G/DL (12.0-16.0) L Hematocrit 33.2 % (37.0-47.0) L Mean Corpuscular Volume 95 FL (80-99) Mean Corpuscular Hemoglobin 33.2 PG (27.0-31.0) H Mean Corpuscular Hemoglobin Concent 34.9 G/DL (32.0-36.0) Red Cell Distribution Width 11.3 % (11.6-14.8) L Platelet Count 171 K/UL (150-450) Mean Platelet Volume 7.1 FL (6.5-10.1) Neutrophils (%) (Auto) 76.2 % (45.0-75.0) H Lymphocytes (%) (Auto) 13.4 % (20.0-45.0) L Monocytes (%) (Auto) 9.5 % (1.0-10.0) Eosinophils (%) (Auto) 0.4 % (0.0-3.0) Basophils (%) (Auto) 0.5 % (0.0-2.0) Coagulation Test 11/17/16 06:40 Prothrombin Time 13.4 SEC (9.30-11.50) H Prothromb Time International Ratio 1.3 (0.9-1.1) H Activated Partial Thromboplast Time 28 SEC (23-33) Chemistry Test 11/17/16 06:40 Sodium Level 130 mEQ/L (135-145) L Potassium Level 3.3 mEQ/L (3.4-4.9) L Chloride Level 90 mEQ/L (98-107) L Carbon Dioxide Level 23 mEQ/L (20-30) Anion Gap 17 (5-15) H Blood Urea Nitrogen 16 mg/dL (7-23) Creatinine 1.0 mg/dL (0.5-0.9) H Estimat Glomerular Filtration Rate mL/min (>60) Glucose Level 130 mg/dL (74-106) H Hemoglobin A1c 5.6 % (< 6.0) Uric Acid 5.8 mg/dL (3.0-7.5) Calcium Level 9.8 mg/dL (8.6-10.2) Phosphorus Level 2.4 mg/dL (2.5-4.8) L Magnesium Level 2.1 mg/dL (1.7-2.5) Total Bilirubin 0.7 mg/dL (0.0-1.2) Gamma Glutamyl Transpeptidase 274 U/L (5-36) H Aspartate Amino Transf (AST/SGOT) 42 U/L (5-40) H Alanine Aminotransferase (ALT/SGPT) 43 U/L (3-33) H Alkaline Phosphatase 99 U/L (35-104) C-Reactive Protein, Quantitative 3.8 mg/dL (< 0.5) H Pro-B-Type Natriuretic Peptide 575 pg/mL (0-450) H Total Protein 6.9 g/dL (6.6-8.7) Albumin 3.5 g/dL (3.5-5.2) Globulin 3.4 g/dL Albumin/Globulin Ratio 1.0 (1.0-2.7) Triglycerides Level 72 mg/dL (< 150) Cholesterol Level 193 mg/dL (< 200) LDL Cholesterol 115 mg/dL (60-99) H HDL Cholesterol 64 mg/dL (> 60) H Cholesterol/HDL Ratio 3.0 (3.3-4.4) L Risk Assessment & Plan Plan: mac Status Change Before Surgery: No Pre-Antibiotics Drug: none JOSH AARON CRNA Nov 17, 2016 11:58
[2016-11-17] MEDS ORDERED: LR 1000ml ONE (12:00)
[2016-11-17] MEDS ORDERED: Propofol 10mg/ml 20ml IV ONE (12:00)
[2016-11-17] MEDS ORDERED: Lidocaine 1% MPF 10mg/ml 5ml ONE (12:00)
--- NOTE | 2016-11-17 12:22 | General Progress Note ---
Assessment/Plan Status: stable Assessment/Plan Status: Renal failure- Cr lower Low Mag - Low Na- High Ca- resolved HTN DM other: (1) Abdominal pain (2) Generalized weakness (3) Diarrhea (4) Nausea & vomiting (5) Humerus fracture (6) Breast cancer (7) DVT (deep venous thrombosis) Plan: Mag IV change IV to NS- Monitor renal parameters. Electrolytes, Ca and Phos Avoid Nephrotoxics- Adjust BP meds- Subjective ROS Limited/Unobtainable: No Constitutional: Reports: malaise Allergies: Coded Allergies: SHELLFISH DERIVED (Verified Allergy, Mild, 11/15/16) ASPIRIN (Verified Allergy, Unknown, GI UPSET. MD ADVISED PT NOT TO TAKE ANYMORE, 06/12/12) CALCIUM CARBONATE (Verified Allergy, Unknown, ITCHY, REDNESS, 06/12/12) PENICILLINS (Verified Allergy, Unknown, ITCHY, REDNESS, 06/12/12) MORPHINE (Verified Adverse Reaction, Mild, NAUSEA,ALTERED MENTAL STATUS, ITCHY REDNESS, 06/12/12) Objective Last 24 Hour Vital Signs Date Time Temp Pulse Resp B/P Pulse Ox O2 Delivery O2 Flow Rate FiO2 11/17/16 12:06 98.1 91 20 165/92 98 Room Air 11/17/16 08:52 99 155/76 11/17/16 08:52 155/76 11/17/16 08:28 97.7 99 20 155/76 97 Room Air 11/17/16 05:57 145/85 11/17/16 04:23 97.0 100 20 144/88 Room Air 11/17/16 00:25 97.0 103 20 152/98 99 Room Air 11/16/16 21:17 180/119 11/16/16 20:00 97.8 94 19 180/119 97 Room Air 11/16/16 17:47 92 158/93 11/16/16 17:47 158/93 11/16/16 16:00 97.9 92 22 158/93 96 Room Air 11/16/16 14:04 166/104 11/16/16 12:47 91 166/104 11/16/16 12:45 166/104 Intake and Output 11/16/16 11/17/16 19:00 07:00 Intake Total 525 ml 1250 ml Balance 525 ml 1250 ml Intake Oral 150 ml 300 ml IV Total 375 ml 950 ml # Bowel Movements 13 Laboratory Tests 11/17/16 06:40: White Blood Count 12.3H, Red Blood Count 3.49L, Hemoglobin 11.6L, Hematocrit 33.2L, Mean Corpuscular Volume 95, Mean Corpuscular Hemoglobin 33.2H, Mean Corpuscular Hemoglobin Concent 34.9, Red Cell Distribution Width 11.3L, Platelet Count 171, Mean Platelet Volume 7.1, Neutrophils (%) (Auto) 76.2H, Lymphocytes (%) (Auto) 13.4L, Monocytes (%) (Auto) 9.5, Eosinophils (%) (Auto) 0.4, Basophils (%) (Auto) 0.5, Prothrombin Time 13.4H, Prothromb Time International Ratio 1.3H, Activated Partial Thromboplast Time 28, Sodium Level 130L, Potassium Level 3.3L, Chloride Level 90L, Carbon Dioxide Level 23, Anion Gap 17H, Blood Urea Nitrogen 16, Creatinine 1.0H, Estimat Glomerular Filtration Rate , Glucose Level 130H, Hemoglobin A1c 5.6, Uric Acid 5.8, Calcium Level 9.8 , Phosphorus Level 2.4L, Magnesium Level 2.1, Total Bilirubin 0.7, Gamma Glutamyl Transpeptidase 274H, Aspartate Amino Transf (AST/SGOT) 42H, Alanine Aminotransferase (ALT/SGPT) 43H, Alkaline Phosphatase 99, C-Reactive Protein, Quantitative 3.8H, Pro-B-Type Natriuretic Peptide 575H, Total Protein 6.9, Albumin 3.5, Globulin 3.4, Albumin/Globulin Ratio 1.0, Triglycerides Level 72, Cholesterol Level 193, LDL Cholesterol 115H, HDL Cholesterol 64H, Cholesterol/ HDL Ratio 3.0L Height (Feet): 5 Height (Inches): 5.00 Weight (Pounds): 229 General Appearance: no apparent distress, lethargic Respiratory/Chest: lungs clear Abdomen: soft Objective other PE not changed VY ALMANZA Nov 17, 2016 12:22
--- NOTE | 2016-11-17 12:26 | Endoscopy Procedure Note ---
Endoscopy Procedure Note Indication for Procedure: anemia Procedures Performed: colonoscopy Operative Findings/Diagnosis: one polyp Specimen: yes Pt Tolerated Procedure Well: Yes Estimated Blood Loss: none Anesthesiologist: kayy Anesthesia: MAC Implant(s) used?: No 50 yrs or older w/o bx or poly: Not Applicable 10yrs. F/U not recommended: Not Applicable HETAL LI Nov 17, 2016 12:26
--- NOTE | 2016-11-17 12:38 | Immediate Post-Op Evaluation ---
Immediate Post-Op Evalulation Immediate Post-Op Evalulation Procedure: colonoscopy Date of Evaluation: Nov 17, 2016 Time of Evaluation: 12:30 IV Fluids: 200 Blood Pressure Systolic: 154 Blood Pressure Diastolic: 65 Pulse Rate: 70 Respiratory Rate: 14 O2 Sat by Pulse Oximetry: 99 Temperature (Fahrenheit): 98.4 Nausea: No Vomiting: No Complications none Patient Status: awake, reacts, patent Hydration Status: adequate Drug: none JOSH AARON CRNA Nov 17, 2016 12:38
--- NOTE | 2016-11-17 12:39 | 48 Hour Post Anesthesia Eval ---
Post Anesthesia Evaluation Procedure: colonoscopy Date of Evaluation: Nov 17, 2016 Time of Evaluation: 12:39 Blood Pressure Systolic: 154 0: 74 Pulse Rate: 74 O2 Sat by Pulse Oximetry: 99 Airway: patent Nausea: No Vomiting: No Hydration Status: adequate Mental Status/LOC: patient returned to baseline Post-Anesthesia Complications: none JOSH AARON CRNA Nov 17, 2016 12:39
--- NOTE | 2016-11-17 13:45 | Diagnostic Imaging Report ---
Indication: DYSPNEA Technique: One view of the chest Comparison: 10/04/2014 Findings: The heart is mildly enlarged. There are left axillary surgical clips. Lungs and pleural spaces are clear. There is no significant interim change Impression: Borderline cardiomegaly. No definite acute process
--- NOTE | 2016-11-17 13:45 | Diagnostic Imaging Report ---
Indications: Needs long-term IV access Technique: Ultrasound confirms patent compressible right brachial and right cephalic vein. Total sterile technique, including sterile probe cover and sterile gel, hat, mask,, sterile gown, large sterile drape, and preparation with 2% chlorhexidine utilized. Local anesthesia with 1% lidocaine. Under real-time ultrasound guidance, puncture ] vein using 21-gauge needle, documented and archived, passage 0.018 guidewire under direct fluoroscopy which would not pass beyond the axilla. Peel-away sheath was inserted. A Kumpe catheter was inserted, and attempts made at manipulating the guidewire more centrally. Venogram was not performed, given uncertain history of contrast allergy attempt made at puncturing the right cephalic vein, after local anesthesia. Spontaneous blood return sheath, the guidewire passed, over which was passed a peel-away sheath. The guidewire would not advance beyond the axilla. It was therefore elected to place a midline. The PICC was cut to 15 cm, and advanced of the guidewire. However, once in place, it would not aspirate or flush easily. This access was therefore abandoned, and the brachial artery was repunctured, guidewire inserted, peel-away sheath inserted, and a short PICC was inserted. Again, it would not easily aspirate, so was withdrawn slightly until it would. It was fixed to the skin. The patient tolerated the procedure well, without immediate complication. Total fluoroscopy time 3.7 minutes. Total dose area product 30 dGycm2 Impression: Unable to place PICC, due to apparent central venoocclusive disease. A short catheter was therefore placed, suitable for use only as a peripheral IV.
--- NOTE | 2016-11-17 13:47 | Diagnostic Imaging Report ---
Indication:Abdominal pain Technique: Grayscale and duplex Doppler imaging of the abdomen performed. Comparison: None Findings: The liver, demonstrated part of the pancreas, aorta and IVC spleen appear unremarkable. Gallbladder not seen. There is no biliary ductal dilatation identified. Doppler evaluation of the main portal vein shows patency. There is no ascites. Kidneys appear echogenic but normal in size. The right kidney is 8.7 CM and the left 9.5 CM in length. No hydronephrosis seen. Impression: Suspected medical renal disease. Status post cholecystectomy
[2016-11-17] MEDS: Phospha 250 Neutral tab ORAL SCH ×2 (13:48→18:08)
[2016-11-17] MEDS ORDERED: LISINOPRIL20 MG ORAL (15:04)
[2016-11-17] MEDS ORDERED: APRESOLINE50 MG ORAL (15:04)
[2016-11-17] MEDS ORDERED: CATAPRES-TTS-21 EA TDERMAL (15:04)
[2016-11-17] MEDS ORDERED: NORVASC5 MG ORAL (15:04)
--- NOTE | 2016-11-17 15:06 | Pulmonology Progress Note ---
Assessment/Plan Problems: (1) Abdominal pain (2) Generalized weakness (3) Diarrhea (4) Nausea & vomiting (5) Humerus fracture (6) HTN (hypertension) (7) Breast cancer (8) DVT (deep venous thrombosis) Assessment/Plan bp is better controlled still not eating well. f/u Gi recommendation endoscopy done one polyp removed pain control pt/ot dc home in am Subjective ROS Limited/Unobtainable: No Interval Events: colonoscopy done, no new complains Allergies: Coded Allergies: SHELLFISH DERIVED (Verified Allergy, Mild, 11/15/16) ASPIRIN (Verified Allergy, Unknown, GI UPSET. ADVISED PT NOT TO TAKE ANYMORE, 06/12/12) CALCIUM CARBONATE (Verified Allergy, Unknown, ITCHY, REDNESS, 06/12/12) PENICILLINS (Verified Allergy, Unknown, ITCHY, REDNESS, 06/12/12) MORPHINE (Verified Adverse Reaction, Mild, NAUSEA,ALTERED MENTAL STATUS, ITCHY REDNESS, 06/12/12) Objective Last 24 Hour Vital Signs Date Time Temp Pulse Resp B/P Pulse Ox O2 Delivery O2 Flow Rate FiO2 11/17/16 13:47 158/92 11/17/16 12:49 79 20 158/92 96 Room Air 11/17/16 12:45 97.6 76 18 161/93 98 Room Air 11/17/16 12:39 74 99 11/17/16 12:38 70 14 99 11/17/16 12:35 74 17 160/87 98 Room Air 11/17/16 12:30 80 19 157/93 100 Simple Mask 6.0 11/17/16 12:25 97.8 81 18 148/95 100 Simple Mask 6.0 11/17/16 12:06 98.1 91 20 165/92 98 Room Air 11/17/16 08:52 99 155/76 11/17/16 08:52 155/76 11/17/16 08:28 97.7 99 20 155/76 97 Room Air 11/17/16 05:57 145/85 11/17/16 04:23 97.0 100 20 144/88 Room Air 11/17/16 00:25 97.0 103 20 152/98 99 Room Air 11/16/16 21:17 180/119 11/16/16 20:00 97.8 94 19 180/119 97 Room Air 11/16/16 17:47 92 158/93 11/16/16 17:47 158/93 11/16/16 16:00 97.9 92 22 158/93 96 Room Air Intake and Output 11/16/16 11/17/16 19:00 07:00 Intake Total 525 ml 1250 ml Balance 525 ml 1250 ml Intake Oral 150 ml 300 ml IV Total 375 ml 950 ml # Bowel Movements 13 General Appearance: WD/WN HEENT: normocephalic, atraumatic Respiratory/Chest: chest wall non-tender, lungs clear Abdomen: normal bowel sounds, soft, non tender Extremities: no cyanosis Skin: no rash Neurologic/Psychiatric: caddie II-XII grossly normal Microbiology Date/Time Source Procedure Growth Status 11/15/16 03:36 Nasal Nares MRSA Culture - Final Staphylococcus Aureus - Mrsa Complete 11/16/16 02:11 Urine,Clean Catch Urine Culture - Preliminary Gram Negative Bacillus 1 Resulted 11/15/16 03:36 Rectum VRE Culture - Final NO VANCOMYCIN RESISTANT ENTEROCOCCUS ... Complete Laboratory Tests 11/17/16 06:40: White Blood Count 12.3H, Red Blood Count 3.49L, Hemoglobin 11.6L, Hematocrit 33.2L, Mean Corpuscular Volume 95, Mean Corpuscular Hemoglobin 33.2H, Mean Corpuscular Hemoglobin Concent 34.9, Red Cell Distribution Width 11.3L, Platelet Count 171, Mean Platelet Volume 7.1, Neutrophils (%) (Auto) 76.2H, Lymphocytes (%) (Auto) 13.4L, Monocytes (%) (Auto) 9.5, Eosinophils (%) (Auto) 0.4, Basophils (%) (Auto) 0.5, Prothrombin Time 13.4H, Prothromb Time International Ratio 1.3H, Activated Partial Thromboplast Time 28, Sodium Level 130L, Potassium Level 3.3L, Chloride Level 90L, Carbon Dioxide Level 23, Anion Gap 17H, Blood Urea Nitrogen 16, Creatinine 1.0H, Estimat Glomerular Filtration Rate , Glucose Level 130H, Hemoglobin A1c 5.6, Uric Acid 5.8, Calcium Level 9.8 , Phosphorus Level 2.4L, Magnesium Level 2.1, Total Bilirubin 0.7, Gamma Glutamyl Transpeptidase 274H, Aspartate Amino Transf (AST/SGOT) 42H, Alanine Aminotransferase (ALT/SGPT) 43H, Alkaline Phosphatase 99, C-Reactive Protein, Quantitative 3.8H, Pro-B-Type Natriuretic Peptide 575H, Total Protein 6.9, Albumin 3.5, Globulin 3.4, Albumin/Globulin Ratio 1.0, Triglycerides Level 72, Cholesterol Level 193, LDL Cholesterol 115H, HDL Cholesterol 64H, Cholesterol/ HDL Ratio 3.0L Current Medications Medications (Trade) Dose Ordered Sig/Gabriel Route PRN Reason Start Time Stop Time Status Last Admin Dose Admin Acetaminophen (Tylenol) 650 mg Q4H PRN ORAL T>100.5 11/15/16 07:15 12/15/16 07:14 Amlodipine Besylate (Norvasc) 5 mg BID ORAL 11/16/16 18:00 12/16/16 17:59 11/17/16 08:52 Clonidine HCl (Catapres TTS-2) 1 patch QWEEK TDERMAL 11/15/16 21:00 12/15/16 20:59 11/15/16 22:14 Clonidine HCl (Catapres) 0.1 mg Q6H PRN ORAL For High Blood Pressure 11/15/16 06:15 12/15/16 06:14 11/16/16 11:38 Dextrose (Dextrose 50%) STAT PRN IV Hypoglycemia 11/15/16 07:15 12/15/16 07:14 Diphenhydramine HCl (Benadryl) 25 mg Q6H PRN ORAL Itching/Pruritis 11/15/16 07:15 12/15/16 07:14 Famotidine (Pepcid I.v.) 20 mg Q12HR IVP 11/15/16 21:00 12/15/16 20:59 11/17/16 08:52 Heparin Sodium (Porcine) (Heparin 5000 units/ml) 5,000 units EVERY 12 HOURS SUBQ 11/15/16 09:00 12/15/16 08:59 11/15/16 22:17 Hydralazine HCl 50 mg 50 mg Q8HR ORAL 11/16/16 14:00 12/16/16 13:59 11/17/16 13:47 Lisinopril (Prinivil) 20 mg BID ORAL 11/15/16 21:00 12/15/16 20:59 11/17/16 08:52 Morphine Sulfate (Morphine Sulfate) 2 mg Q4H PRN IVP severe Pain (Pain Scale 7-10) 11/15/16 07:15 11/22/16 07:14 Nitroglycerin (Ntg) 0.4 mg Q5M X 3 DOSES PRN SL Prn Chest Pain 11/15/16 07:15 12/15/16 07:14 Ondansetron HCl (Zofran) 4 mg Q6H PRN IVP Nausea & Vomiting 11/15/16 07:15 12/15/16 07:14 11/17/16 10:23 Phosphorus (Phospha 250 Neutral) 500 mg THREE TIMES A DAY ORAL 11/17/16 13:00 11/18/16 09:01 11/17/16 13:48 Polyethylene Glycol (Miralax) 17 gm HSPRN PRN ORAL Constipation 11/15/16 21:00 12/15/16 20:59 Sodium Chloride (Sodium Chloride 1000ml bag) 1,000 ml @ 75 mls/hr [id number] IV 11/16/16 20:15 12/16/16 20:14 11/17/16 10:08 Temazepam (Restoril) 15 mg HSPRN PRN ORAL Insomnia 11/15/16 21:00 11/22/16 20:59 ISAURA GARCIA Nov 17, 2016 15:06
--- NOTE | 2016-11-17 19:47 | Procedure Note ---
DATE OF PROCEDURE: 11/17/2016 SURGEON: Murray Murray M.D. PROCEDURE: Colonoscopy with snare polypectomy. ANESTHESIA: Per PROCEDURE ANALYST, Winsome Tran. INSTRUMENT: Olympus adult flexible colonoscope. INDICATION: Anemia. REASON FOR PROCEDURE: The procedure, risks, benefits, and possible consequences, including hemorrhage, aspiration, perforation and infection, and alternative treatments, were explained to the patient/legal guardian by Dr. Murray Murray and the patient/legal guardian understood and accepted these risks. DESCRIPTION OF PROCEDURE: After informed consent was obtained and the patient was adequately sedated, first rectal exam was performed, which was normal. Then, the scope was advanced from the rectum into the cecum documented by appendiceal orifice, ileoccal valve, and right upper quadrant palpation. Quality of prep was fair. I would say about 10 to 15% of the colonic mucosa was not examined given this prep especially cecum that was a little bit challenging and some part of the left colon was challenging given there was a lot of fluid. The patient had a sessile 1.4 cm polyp in the proximal ascending colon, removed with hot snare polypectomy technique. Retroflexion of rectum showed evidence of small internal hemorrhoids. SUMMARY OF FINDINGS: 1. Fair colonic prep. See above for details. 2. One colonic polyp removed, 1.4 cm. 3. Internal hemorrhoids. RECOMMENDATIONS: 1. Follow up biopsies and treat accordingly. 2. We recommend repeat colonoscopy in three years given the size of this polyp. I want to thank, Dr. Iqbal, for this kind referral. Murray Murray M.D. DR: MITCH JOB#: [id number] CC: Rod Iqbal M.D.
--- NOTE | 2016-11-17 20:16 | Cardiology Progress Note ---
Assessment/Plan Assessment/Plan 1. Abdominal pain . 2. Poor p.o. intake. 3. Medication noncompliance secondary to above. 4. 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 5. Obesity . 6. History of breast cancer. 7. History of deep venous thrombosis on anticoagulation la ct reportedly neg lisnotpril 20 bid norvasc 5 mg bid some elevated bp related to ns loading hydralazine 50 tid add hctz increase tts 3 patch Subjective Cardiovascular: Denies: chest pain, lightheadedness Respiratory: Denies: shortness of breath Gastrointestinal/Abdominal: Denies: abdominal pain Genitourinary: Denies: burning Objective Last 24 Hour Vital Signs Date Time Temp Pulse Resp B/P Pulse Ox O2 Delivery O2 Flow Rate FiO2 11/17/16 20:00 97.0 92 20 163/82 97 Room Air 11/17/16 18:12 165/102 11/17/16 18:08 82 165/102 11/17/16 16:00 97.5 82 20 165/102 96 Room Air 11/17/16 13:47 158/92 11/17/16 12:49 79 20 158/92 96 Room Air 11/17/16 12:45 97.6 76 18 161/93 98 Room Air 11/17/16 12:39 74 99 11/17/16 12:38 70 14 99 11/17/16 12:35 74 17 160/87 98 Room Air 11/17/16 12:30 80 19 157/93 100 Simple Mask 6.0 11/17/16 12:25 97.8 81 18 148/95 100 Simple Mask 6.0 11/17/16 12:06 98.1 91 20 165/92 98 Room Air 11/17/16 08:52 99 155/76 11/17/16 08:52 155/76 11/17/16 08:28 97.7 99 20 155/76 97 Room Air 11/17/16 05:57 145/85 11/17/16 04:23 97.0 100 20 144/88 Room Air 11/17/16 00:25 97.0 103 20 152/98 99 Room Air 11/16/16 21:17 180/119 General Appearance: alert Neck: no JVD Cardiovascular: normal rate, regular rhythm Respiratory/Chest: lungs clear, normal breath sounds Abdomen: non tender, soft Extremities: no swelling Intake and Output 11/16/16 11/17/16 19:00 07:00 Intake Total 525 ml 1250 ml Balance 525 ml 1250 ml Intake Oral 150 ml 300 ml IV Total 375 ml 950 ml # Bowel Movements 13 Laboratory Tests Test 11/17/16 06:40 White Blood Count 12.3 K/UL (4.8-10.8) H Red Blood Count 3.49 M/UL (4.20-5.40) L Hemoglobin 11.6 G/DL (12.0-16.0) L Hematocrit 33.2 % (37.0-47.0) L Mean Corpuscular Volume 95 FL (80-99) Mean Corpuscular Hemoglobin 33.2 PG (27.0-31.0) H Mean Corpuscular Hemoglobin Concent 34.9 G/DL (32.0-36.0) Red Cell Distribution Width 11.3 % (11.6-14.8) L Platelet Count 171 K/UL (150-450) Mean Platelet Volume 7.1 FL (6.5-10.1) Neutrophils (%) (Auto) 76.2 % (45.0-75.0) H Lymphocytes (%) (Auto) 13.4 % (20.0-45.0) L Monocytes (%) (Auto) 9.5 % (1.0-10.0) Eosinophils (%) (Auto) 0.4 % (0.0-3.0) Basophils (%) (Auto) 0.5 % (0.0-2.0) Prothrombin Time 13.4 SEC (9.30-11.50) H Prothromb Time International Ratio 1.3 (0.9-1.1) H Activated Partial Thromboplast Time 28 SEC (23-33) Sodium Level 130 mEQ/L (135-145) L Potassium Level 3.3 mEQ/L (3.4-4.9) L Chloride Level 90 mEQ/L (98-107) L Carbon Dioxide Level 23 mEQ/L (20-30) Anion Gap 17 (5-15) H Blood Urea Nitrogen 16 mg/dL (7-23) Creatinine 1.0 mg/dL (0.5-0.9) H Estimat Glomerular Filtration Rate mL/min (>60) Glucose Level 130 mg/dL (74-106) H Hemoglobin A1c 5.6 % (< 6.0) Uric Acid 5.8 mg/dL (3.0-7.5) Calcium Level 9.8 mg/dL (8.6-10.2) Phosphorus Level 2.4 mg/dL (2.5-4.8) L Magnesium Level 2.1 mg/dL (1.7-2.5) Total Bilirubin 0.7 mg/dL (0.0-1.2) Gamma Glutamyl Transpeptidase 274 U/L (5-36) H Aspartate Amino Transf (AST/SGOT) 42 U/L (5-40) H Alanine Aminotransferase (ALT/SGPT) 43 U/L (3-33) H Alkaline Phosphatase 99 U/L (35-104) C-Reactive Protein, Quantitative 3.8 mg/dL (< 0.5) H Pro-B-Type Natriuretic Peptide 575 pg/mL (0-450) H Total Protein 6.9 g/dL (6.6-8.7) Albumin 3.5 g/dL (3.5-5.2) Globulin 3.4 g/dL Albumin/Globulin Ratio 1.0 (1.0-2.7) Triglycerides Level 72 mg/dL (< 150) Cholesterol Level 193 mg/dL (< 200) LDL Cholesterol 115 mg/dL (60-99) H HDL Cholesterol 64 mg/dL (> 60) H Cholesterol/HDL Ratio 3.0 (3.3-4.4) L Microbiology Date/Time Source Procedure Growth Status 11/15/16 03:36 Nasal Nares MRSA Culture - Final Staphylococcus Aureus - Mrsa Complete 11/16/16 02:11 Urine,Clean Catch Urine Culture - Preliminary Gram Negative Bacillus 1 Resulted 11/15/16 03:36 Rectum VRE Culture - Final NO VANCOMYCIN RESISTANT ENTEROCOCCUS ... Complete LORY BELL Nov 17, 2016 20:16
[2016-11-18] VITALS: BP 150/76
[2016-11-18 04:00] VITALS: BP 164/75
[2016-11-18 04:34] VITALS: BP 149/77
[2016-11-18] MEDS: HydrALAZINE 50mg tab ORAL SCH (05:38)
[2016-11-18 08:02] VITALS: BP 175/78
[2016-11-18] MEDS: Famotidine 20 MG/ 2ML VIAL IVP SCH (08:56)
[2016-11-18] MEDS: Phospha 250 Neutral tab ORAL SCH (08:57)
[2016-11-18] MEDS: Lisinopril 20mg tab ORAL SCH (08:57)
[2016-11-18] MEDS: Heparin 5000 units/ml inj SUBQ SCH (08:58)
[2016-11-18 10:21] LABS: BASOPHILS % (AUTO) 1.3 % (0.0-2.0); EOSINOPHILS % (AUTO) 0.7 % (0.0-3.0); LYMPHOCYTES % (AUTO) 14.4 % (20.0-45.0); MEAN CORPUSCULAR HEMOGLOBIN 32.6 PG (27.0-31.0); MEAN CORPUSCULAR HGB CONC 33.8 G/DL (32.0-36.0); MEAN CORPUSCULAR VOLUME 96 FL (80-99); MEAN PLATELET VOLUME 8.1 FL (6.5-10.1); MONOCYTES % (AUTO) 6.4 % (1.0-10.0); NEUTROPHILS % (AUTO) 77.2 % (45.0-75.0); PLATELET COUNT 159 K/UL (150-450); RED BLOOD COUNT 3.59 M/UL (4.20-5.40); RED CELL DISTRIBUTION WIDTH 11.6 % (11.6-14.8); WHITE BLOOD COUNT 9.6 K/UL (4.8-10.8)
[2016-11-18 10:34] LABS: ALANINE AMINOTRANSFERASE 45 U/L (3-33); ANION GAP 15 (5-15); ASPARTATE AMINO TRANSFERASE 40 U/L (5-40); CALCIUM 9.7 mg/dL (8.6-10.2); CARBON DIOXIDE 24 mEQ/L (20-30); CHLORIDE 92 mEQ/L (98-107); CREATININE 1.1 mg/dL (0.5-0.9); CRP QUANT 5.4 mg/dL (< 0.5); HEMOLYSIS 23; MAGNESIUM 1.6 mg/dL (1.7-2.5); PHOSPHORUS 3.1 mg/dL (2.5-4.8); POTASSIUM 3.8 mEQ/L (3.4-4.9); SODIUM 131 mEQ/L (135-145); TOTAL PROTEIN 7.4 g/dL (6.6-8.7); URIC ACID 4.7 mg/dL (3.0-7.5)
--- NOTE | 2016-11-18 11:10 | GI Progress Note ---
Assessment/Plan Problems: (1) Sigmoid thickening ICD Codes: K63.9 - Disease of intestine, unspecified SNOMED: 541569389 (2) Abdominal pain ICD Codes: R10.9 - Unspecified abdominal pain SNOMED: 33851411 (3) Nausea & vomiting ICD Codes: R11.2 - Nausea with vomiting, unspecified SNOMED: 43984204 (4) Generalized weakness ICD Codes: R53.1 - Weakness SNOMED: 81638051 Status: stable Status Narrative Discussed with Dr. Murray. Assessment/Plan CBC unremarkable s/p EGD/colon Nov 2012 s/p ex-lap lysis of adhesion Nov [address] noted SUMMARY OF FINDINGS: 1. Fair colonic prep. See above for details. 2. One colonic polyp removed, 1.4 cm. 3. Internal hemorrhoids. okay for DC per GI standpoint fu biopsies monitor H&H, transfuse prn cardiac diet H2 pain mgmt fu labs repeat colon x 3 years Subjective Gastrointestinal/Abdominal: Reports: no symptoms Subjective denies any pain wants to go home Objective Last 24 Hour Vital Signs Date Time Temp Pulse Resp B/P Pulse Ox O2 Delivery O2 Flow Rate FiO2 11/18/16 08:57 86 175/78 11/18/16 08:57 175/78 11/18/16 08:02 97.7 86 18 175/78 99 Room Air 11/18/16 05:38 149/77 11/18/16 04:34 149/77 11/18/16 04:00 98.1 93 20 164/75 100 Room Air 11/18/16 00:00 98.4 93 20 150/76 98 Room Air 11/17/16 21:43 163/82 11/17/16 21:42 163/82 11/17/16 20:00 97.0 92 20 163/82 97 Room Air 11/17/16 18:12 165/102 11/17/16 18:08 82 165/102 11/17/16 16:00 97.5 82 20 165/102 96 Room Air 11/17/16 13:47 158/92 11/17/16 12:49 79 20 158/92 96 Room Air 11/17/16 12:45 97.6 76 18 161/93 98 Room Air 11/17/16 12:39 74 99 11/17/16 12:38 70 14 99 11/17/16 12:35 74 17 160/87 98 Room Air 11/17/16 12:30 80 19 157/93 100 Simple Mask 6.0 11/17/16 12:25 97.8 81 18 148/95 100 Simple Mask 6.0 11/17/16 12:06 98.1 91 20 165/92 98 Room Air Intake and Output 11/17/16 11/18/16 19:00 07:00 Intake Total 975 ml 686.25 ml Output Total 250 ml Balance 725 ml 686.25 ml IV Total 975 ml 686.25 ml Output Urine Total 250 ml Estimated Blood Loss 0 ml # Voids 5 Laboratory Tests Test 11/18/16 10:10 White Blood Count 9.6 K/UL (4.8-10.8) Red Blood Count 3.59 M/UL (4.20-5.40) L Hemoglobin 11.7 G/DL (12.0-16.0) L Hematocrit 34.7 % (37.0-47.0) L Mean Corpuscular Volume 96 FL (80-99) Mean Corpuscular Hemoglobin 32.6 PG (27.0-31.0) H Mean Corpuscular Hemoglobin Concent 33.8 G/DL (32.0-36.0) Red Cell Distribution Width 11.6 % (11.6-14.8) Platelet Count 159 K/UL (150-450) Mean Platelet Volume 8.1 FL (6.5-10.1) Neutrophils (%) (Auto) 77.2 % (45.0-75.0) H Lymphocytes (%) (Auto) 14.4 % (20.0-45.0) L Monocytes (%) (Auto) 6.4 % (1.0-10.0) Eosinophils (%) (Auto) 0.7 % (0.0-3.0) Basophils (%) (Auto) 1.3 % (0.0-2.0) Sodium Level 131 mEQ/L (135-145) L Potassium Level 3.8 mEQ/L (3.4-4.9) Chloride Level 92 mEQ/L (98-107) L Carbon Dioxide Level 24 mEQ/L (20-30) Anion Gap 15 (5-15) Blood Urea Nitrogen 11 mg/dL (7-23) Creatinine 1.1 mg/dL (0.5-0.9) H Estimat Glomerular Filtration Rate mL/min (>60) Glucose Level 151 mg/dL (74-106) H Uric Acid 4.7 mg/dL (3.0-7.5) Calcium Level 9.7 mg/dL (8.6-10.2) Phosphorus Level 3.1 mg/dL (2.5-4.8) Magnesium Level 1.6 mg/dL (1.7-2.5) L Total Bilirubin 0.6 mg/dL (0.0-1.2) Aspartate Amino Transf (AST/SGOT) 40 U/L (5-40) Alanine Aminotransferase (ALT/SGPT) 45 U/L (3-33) H Alkaline Phosphatase 99 U/L (35-104) C-Reactive Protein, Quantitative 5.4 mg/dL (< 0.5) H Pro-B-Type Natriuretic Peptide 409 pg/mL (0-450) Total Protein 7.4 g/dL (6.6-8.7) Albumin 3.7 g/dL (3.5-5.2) Globulin 3.7 g/dL Albumin/Globulin Ratio 1.0 (1.0-2.7) Height (Feet): 5 Height (Inches): 5.00 Weight (Pounds): 229 General Appearance: no apparent distress, alert, obese Cardiovascular: normal rate Respiratory/Chest: normal breath sounds, no respiratory distress Abdominal Exam: normal bowel sounds, non tender, soft Objective Procedure: CT Abdomen Pelvis WO Contrast Indication: Abdominal pain Impression: Equivocal mild wall thickening of the distal sigmoid and rectum, may be an artifact of under distention but could indicate proctocolitis. Correlate with clinical findings No other acute abnormal Evidence of prior cholecystectomy. Dilated extrahepatic bile ducts, likely related to such and unchanged. Downstream obstructive pathology is not visualized although not completely excludable. Correlate with liver function tests Cardiomegaly Incidental findings as noted, including evidence of recent subcutaneous injections, evidence of prior left mastectomy, minimal compressive pulmonary parenchymal atelectatic changes, evidence of prior hysterectomy, multiple duodenal diverticula Corinna Villarreal N.P. Nov 18, 2016 11:09
[2016-11-18] MEDS ORDERED: NaCl 3% 500ml 250 ML IVPB ONE (11:15)
--- NOTE | 2016-11-18 11:18 | General Progress Note ---
Assessment/Plan Status: stable Assessment/Plan Status: Renal failure- Cr lower Low Mag - Low Na- High Ca- resolved HTN DM other: (1) Abdominal pain (2) Generalized weakness (3) Diarrhea (4) Nausea & vomiting (5) Humerus fracture (6) Breast cancer (7) DVT (deep venous thrombosis) Plan: Mag IV- start Clonidin PO, DC TTS patch DC IV and give one bollous of 3% 250cc Monitor renal parameters. Electrolytes, Ca and Phos Avoid Nephrotoxics- Adjust BP meds- Subjective ROS Limited/Unobtainable: No Constitutional: Reports: malaise Allergies: Coded Allergies: SHELLFISH DERIVED (Verified Allergy, Mild, 11/15/16) ASPIRIN (Verified Allergy, Unknown, GI UPSET. MD ADVISED PT NOT TO TAKE ANYMORE, 06/12/12) CALCIUM CARBONATE (Verified Allergy, Unknown, ITCHY, REDNESS, 06/12/12) PENICILLINS (Verified Allergy, Unknown, ITCHY, REDNESS, 06/12/12) MORPHINE (Verified Adverse Reaction, Mild, NAUSEA,ALTERED MENTAL STATUS, ITCHY REDNESS, 06/12/12) Objective Last 24 Hour Vital Signs Date Time Temp Pulse Resp B/P Pulse Ox O2 Delivery O2 Flow Rate FiO2 11/18/16 08:57 86 175/78 11/18/16 08:57 175/78 11/18/16 08:02 97.7 86 18 175/78 99 Room Air 11/18/16 05:38 149/77 11/18/16 04:34 149/77 11/18/16 04:00 98.1 93 20 164/75 100 Room Air 11/18/16 00:00 98.4 93 20 150/76 98 Room Air 11/17/16 21:43 163/82 11/17/16 21:42 163/82 11/17/16 20:00 97.0 92 20 163/82 97 Room Air 11/17/16 18:12 165/102 11/17/16 18:08 82 165/102 11/17/16 16:00 97.5 82 20 165/102 96 Room Air 11/17/16 13:47 158/92 11/17/16 12:49 79 20 158/92 96 Room Air 11/17/16 12:45 97.6 76 18 161/93 98 Room Air 11/17/16 12:39 74 99 11/17/16 12:38 70 14 99 11/17/16 12:35 74 17 160/87 98 Room Air 11/17/16 12:30 80 19 157/93 100 Simple Mask 6.0 11/17/16 12:25 97.8 81 18 148/95 100 Simple Mask 6.0 11/17/16 12:06 98.1 91 20 165/92 98 Room Air Intake and Output 11/17/16 11/18/16 19:00 07:00 Intake Total 975 ml 686.25 ml Output Total 250 ml Balance 725 ml 686.25 ml IV Total 975 ml 686.25 ml Output Urine Total 250 ml Estimated Blood Loss 0 ml # Voids 5 Laboratory Tests 11/18/16 10:10: White Blood Count 9.6, Red Blood Count 3.59L, Hemoglobin 11.7L, Hematocrit 34.7L , Mean Corpuscular Volume 96, Mean Corpuscular Hemoglobin 32.6H, Mean Corpuscular Hemoglobin Concent 33.8, Red Cell Distribution Width 11.6, Platelet Count 159, Mean Platelet Volume 8.1, Neutrophils (%) (Auto) 77.2H, Lymphocytes ( %) (Auto) 14.4L, Monocytes (%) (Auto) 6.4, Eosinophils (%) (Auto) 0.7, Basophils (%) (Auto) 1.3, Sodium Level 131L, Potassium Level 3.8, Chloride Level 92L, Carbon Dioxide Level 24, Anion Gap 15, Blood Urea Nitrogen 11, Creatinine 1.1H, Estimat Glomerular Filtration Rate , Glucose Level 151H, Uric Acid 4.7, Calcium Level 9.7, Phosphorus Level 3.1, Magnesium Level 1.6L, Total Bilirubin 0.6, Aspartate Amino Transf (AST/SGOT) 40, Alanine Aminotransferase ( ALT/SGPT) 45H, Alkaline Phosphatase 99, C-Reactive Protein, Quantitative 5.4H, Pro-B-Type Natriuretic Peptide 409, Total Protein 7.4, Albumin 3.7, Globulin 3.7 , Albumin/Globulin Ratio 1.0 Height (Feet): 5 Height (Inches): 5.00 Weight (Pounds): 229 General Appearance: no apparent distress Objective other PE not changed VY ALMANZA Nov 18, 2016 11:18
[2016-11-18 11:22] VITALS: BP 167/85
[2016-11-18] MEDS ORDERED: NaCl 3% 500ml 250 ML IV ONE ×2 (11:39→14:00)
--- NOTE | 2016-11-18 12:30 | Pulmonology Progress Note ---
Assessment/Plan Problems: (1) Abdominal pain (2) Generalized weakness (3) Diarrhea (4) Nausea & vomiting (5) Humerus fracture (6) HTN (hypertension) (7) Breast cancer (8) DVT (deep venous thrombosis) Assessment/Plan bp is better controlled eating better f/u Gi recommendation endoscopy done one polyp removed pain control pt/ot dc home today Subjective ROS Limited/Unobtainable: No Interval Events: doing better HEENT: Repors: no symptoms Respiratory: Reports: no symptoms Cardiovascular: Reports: no symptoms Gastrointestinal/Abdominal: Reports: no symptoms Allergies: Coded Allergies: SHELLFISH DERIVED (Verified Allergy, Mild, 11/15/16) ASPIRIN (Verified Allergy, Unknown, GI UPSET. ADVISED PT NOT TO TAKE ANYMORE, 06/12/12) CALCIUM CARBONATE (Verified Allergy, Unknown, ITCHY, REDNESS, 06/12/12) PENICILLINS (Verified Allergy, Unknown, ITCHY, REDNESS, 06/12/12) MORPHINE (Verified Adverse Reaction, Mild, NAUSEA,ALTERED MENTAL STATUS, ITCHY REDNESS, 06/12/12) Objective Last 24 Hour Vital Signs Date Time Temp Pulse Resp B/P Pulse Ox O2 Delivery O2 Flow Rate FiO2 11/18/16 11:22 97.7 84 18 167/85 99 Room Air 11/18/16 08:57 86 175/78 11/18/16 08:57 175/78 11/18/16 08:02 97.7 86 18 175/78 99 Room Air 11/18/16 05:38 149/77 11/18/16 04:34 149/77 11/18/16 04:00 98.1 93 20 164/75 100 Room Air 11/18/16 00:00 98.4 93 20 150/76 98 Room Air 11/17/16 21:43 163/82 11/17/16 21:42 163/82 11/17/16 20:00 97.0 92 20 163/82 97 Room Air 11/17/16 18:12 165/102 11/17/16 18:08 82 165/102 11/17/16 16:00 97.5 82 20 165/102 96 Room Air 11/17/16 13:47 158/92 11/17/16 12:49 79 20 158/92 96 Room Air 11/17/16 12:45 97.6 76 18 161/93 98 Room Air 11/17/16 12:39 74 99 11/17/16 12:38 70 14 99 11/17/16 12:35 74 17 160/87 98 Room Air 11/17/16 12:30 80 19 157/93 100 Simple Mask 6.0 Intake and Output 11/17/16 11/18/16 19:00 07:00 Intake Total 975 ml 686.25 ml Output Total 250 ml Balance 725 ml 686.25 ml IV Total 975 ml 686.25 ml Output Urine Total 250 ml Estimated Blood Loss 0 ml # Voids 5 General Appearance: WD/WN HEENT: normocephalic, atraumatic Respiratory/Chest: chest wall non-tender, lungs clear Cardiovascular: normal peripheral pulses, normal rate Abdomen: normal bowel sounds, soft, non tender Skin: no rash, no ulcers Neurologic/Psychiatric: abnormal gait Lymphatic: no groin adenopathy Microbiology Date/Time Source Procedure Growth Status 11/16/16 02:11 Urine,Clean Catch Urine Culture - Preliminary Klebsiella Pneumoniae Citrobacter Amalonaticus Streptococcus Species Resulted Laboratory Tests 11/18/16 10:10: White Blood Count 9.6, Red Blood Count 3.59L, Hemoglobin 11.7L, Hematocrit 34.7L , Mean Corpuscular Volume 96, Mean Corpuscular Hemoglobin 32.6H, Mean Corpuscular Hemoglobin Concent 33.8, Red Cell Distribution Width 11.6, Platelet Count 159, Mean Platelet Volume 8.1, Neutrophils (%) (Auto) 77.2H, Lymphocytes ( %) (Auto) 14.4L, Monocytes (%) (Auto) 6.4, Eosinophils (%) (Auto) 0.7, Basophils (%) (Auto) 1.3, Sodium Level 131L, Potassium Level 3.8, Chloride Level 92L, Carbon Dioxide Level 24, Anion Gap 15, Blood Urea Nitrogen 11, Creatinine 1.1H, Estimat Glomerular Filtration Rate , Glucose Level 151H, Uric Acid 4.7, Calcium Level 9.7, Phosphorus Level 3.1, Magnesium Level 1.6L, Total Bilirubin 0.6, Aspartate Amino Transf (AST/SGOT) 40, Alanine Aminotransferase ( ALT/SGPT) 45H, Alkaline Phosphatase 99, C-Reactive Protein, Quantitative 5.4H, Pro-B-Type Natriuretic Peptide 409, Total Protein 7.4, Albumin 3.7, Globulin 3.7 , Albumin/Globulin Ratio 1.0 Current Medications Medications (Trade) Dose Ordered Sig/Gabriel Route PRN Reason Start Time Stop Time Status Last Admin Dose Admin Acetaminophen (Tylenol) 650 mg Q4H PRN ORAL T>100.5 11/15/16 07:15 12/15/16 07:14 Amlodipine Besylate (Norvasc) 5 mg BID ORAL 11/16/16 18:00 12/16/16 17:59 11/18/16 08:57 Clonidine HCl (Catapres) 0.1 mg EVERY 8 HOURS ORAL 11/18/16 14:00 12/18/16 13:59 Clonidine HCl 0.1 mg 0.1 mg Q6H PRN ORAL For High Blood Pressure 11/18/16 11:30 12/18/16 11:29 Dextrose (Dextrose 50%) STAT PRN IV Hypoglycemia 11/15/16 07:15 12/15/16 07:14 Heparin Sodium (Porcine) (Heparin 5000 units/ml) 5,000 units EVERY 12 HOURS SUBQ 11/15/16 09:00 12/15/16 08:59 11/18/16 08:58 Hydralazine HCl (Apresoline) 50 mg Q8HR ORAL 11/16/16 14:00 12/16/16 13:59 11/18/16 05:38 Lisinopril (Prinivil) 20 mg BID ORAL 11/15/16 21:00 12/15/16 20:59 11/18/16 08:57 Magnesium Sulfate 100 ml @ 100 mls/hr Q1H IVPB 11/18/16 12:00 11/18/16 13:59 Morphine Sulfate (Morphine Sulfate) 2 mg Q4H PRN IVP severe Pain (Pain Scale 7-10) 11/15/16 07:15 11/22/16 07:14 Nitroglycerin (Ntg) 0.4 mg Q5M X 3 DOSES PRN SL Prn Chest Pain 11/15/16 07:15 12/15/16 07:14 Ondansetron HCl (Zofran) 4 mg Q6H PRN IVP Nausea & Vomiting 11/15/16 07:15 12/15/16 07:14 11/17/16 10:23 Polyethylene Glycol (Miralax) 17 gm HSPRN PRN ORAL Constipation 11/15/16 21:00 2/22/17 20:59 Sodium Chloride (Hypertonic Saline) 250 ml @ 30 mls/hr ONCE ONCE IV 11/18/16 14:00 11/18/16 22:19 Temazepam (Restoril) 15 mg HSPRN PRN ORAL Insomnia 11/15/16 21:00 11/22/16 20:59 ISAURA GARCIA Nov 18, 2016 12:30
[2016-11-18] MEDS ORDERED: D5 1/2NS 1000ml IV ONE (13:40)
--- NOTE | 2016-11-19 14:30 | Discharge Summary ---
Discharge Summary Hospital Course Date of Admission Nov 15, 2016 at 03:00 Date of Discharge Nov 18, 2016 at 13:41 Admitting Diagnosis HPI Tina Garcia is a 76 year old female who was admitted on Nov 15, 2016 at 03: 00 for Abdominal Pain Hospital Course [id number] Discharge Discharge Disposition Patient was discharged to Home (01) Discharge Diagnoses: Itzel Ashby NP Nov 19, 2016 14:30
--- NOTE | 2016-11-19 23:38 | Discharge Summary 2 SIG ---
DATE OF ADMISSION: 11/15/2016 DATE OF DISCHARGE: 11/18/2016 CONSULTANTS: 1. Davon Mena M.D. 2. Axel Pacheco M.D. 3. Murray Murray M.D. BRIEF HOSPITAL COURSE: The patient is a 76-year-old female with recent hospitalization at [place] who was taken by paramedics to [facility] with complaints of left lower quadrant abdominal pain with nausea and vomiting starting the night prior to admission. Her blood pressure was elevated to systolic 200. CT of the abdomen did not show any acute changes. She was transferred to [facility] for further evaluation. She was placed on NPO and was given IV fluids. Dr. Murray was consulted. A CT of the abdomen and pelvis was ordered and showed equivocal mild wall thickening of the distal sigmoid and rectum with prior evidence of cholecystectomy. Abdominal ultrasound showed medical renal disease. Dr. Pacheco was consulted for renal failure and electrolyte imbalance. Intravenous fluids was adjusted. She had low magnesium and was given intravenous magnesium supplement. Dr. Mena was also consulted for management of hypertension and was given Norvasc and ILEANA inhibitors. On 11/17/2016, the patient underwent colonoscopy with findings of internal hemorrhoids, one colonic polyp removed. She continued to be with elevated BP. Hydralazine was added together with clonidine by mouth. She was also given hypertonic solution for hyponatremia. She was eventually discharged to home. FINAL DIAGNOSES: 1. Hypertensive urgency with reactive component. 2. Abdominal pain with sigmoid thickening. 3. Status post colonoscopy. 4. History of breast CA. 5. History of DVT. 6. Acute on chronic renal failure. 7. Hypomagnesemia. 8. Hyponatremia. 9. Hyperkalemia, resolved. 10. Diabetes mellitus. Rod Iqbal M.D. I have been assigned to dictate discharge summary on this account and I was not involved in the patient's management. Itzel Ashby N.P. DR: JUANY JOB#: [id number] CC: TIM
--- NOTE | 2016-12-18 03:26 | Cardiology Report ---
APPROVED REPORT EKG Measurement Heart [id number] Normal sinus rhythm Left axis deviation Anterior infarct, age undetermined Abnormal ECG
== END 2016-11-18 13:41 | disposition home or self-care (01) | DRG 305 ==
LOC: 2E 03:00
PROC: 0DBK8ZX Excision of Ascending Colon, Via Natural or Artificial Opening Endoscopic, Diagnostic (ICD-10-PCS; principal; 2016-11-17 12:09)
DX: I16.0 Hypertensive urgency (principal); N17.9 Acute kidney failure, unspecified; E11.22 Type 2 diabetes mellitus with diabetic chronic kidney disease; E87.1 Hypo-osmolality and hyponatremia; E87.5 Hyperkalemia; F19.939 Other psychoactive substance use, unspecified with withdrawal, unspecified; E83.42 Hypomagnesemia; R19.7 Diarrhea, unspecified; K21.9 Gastro-esophageal reflux disease without esophagitis; E66.9 Obesity, unspecified; D12.2 Benign neoplasm of ascending colon; K64.8 Other hemorrhoids; I12.9 Hypertensive chronic kidney disease with stage 1 through stage 4 chronic kidney disease, or unspecified chronic kidney disease; N18.9 Chronic kidney disease, unspecified; Z88.0 Allergy status to penicillin; Z68.38 Body mass index [BMI] 38.0-38.9, adult; Z85.3 Personal history of malignant neoplasm of breast; Z91.14 Patient's other noncompliance with medication regimen; Z86.14 Personal history of Methicillin resistant Staphylococcus aureus infection
CPT/HCPCS: 36415; 36569; 71010; 74176; 76700; 76937; 80053; 80061; 81001; 82150; 82533; 82977; 83036; 83690; 83735; 83880; 83930; 83935; 84100; 84300; 84439; 84443; 84481; 84484; 84550; 85025; 85610; 85730; 86140; 87081; 87086; 87181; 93005; 94003; 94150; C9399; J2405; J8499

== ENCOUNTER 2018-03-23 14:17 | Outpatient (CLI) | payer MEDICARE, MEDICAID ==
[~2018-03-23 14:17] MED LIST: AMBIEN5 MG ORAL; AMITIZA24 MCG ORAL; AMLODIPINE BESYL5 MG ORAL; APRESOLINE50 MG ORAL; ATORVASTATIN CA40 MG ORAL; BENAZEPRIL HCL10 MG ORAL; BENAZEPRIL HCL20 MG ORAL; BENAZEPRIL-HCT1 EACH ORAL; CARISOPRODOL350 MG; CARVEDILOL12.5 MG; CARVEDILOL25 MG ORAL; CATAPRES-TTS-21 EA TDERMAL; CATAPRES0.2 MG ORAL; CIPRO500 MG PO; CLOPIDOGREL75 MG ORAL; COLACE100 MG ORAL; COMPAZINE10 MG; COREG12.5 MG ORAL; COUMADIN1 MG ORAL; COUMADIN6 MG ORAL; CYPROHEPTADINE H4 MG PO; DIAZEPAM10 MG; DILANTIN100 MG ORAL; DIPHENOXYLATE-1 EACH; DONEPEZIL HCL5 MG; DOXEPIN HC10 MG/1 ML PO; FLONASE1 SPRAYS NASAL; FUROSEMIDE20 M1; GABAPENTIN600 MG; HYDRALAZINE HCL50 MG ORAL; HYDROCHLOROTH12.5 M2 ORAL; HYDROCODON-ACE1 EA13; LEVOTHYROXINE100 MCG ORAL; LISINOPRIL20 MG ORAL; LOSARTAN POTASS50 MG ORAL; LYRICA25 MG ORAL; LYRICA75 M1 ORAL; MEGACE400 MG/11 PO; MEGESTROL400 MG/11; METHOCARBAMOL750 MG ORAL; METOPROLOL SUCC50 MG ORAL; METOPROLOL TART50 M1; MULTIVITAMINS1 EA11 ORAL; MYLANTA II30 ML GT; NEURONTIN300 MG PO; NIFEDIPINE ER60 M2 ORAL; NITROGLYCERIN0.4 MG SL; NKM; NORCO 10-325 T1 EACH ORAL; NORCO 10/3251 EA ORAL; NORCO 5-325 TA1 EAC1 ORAL; NORCO 5-325 TA1 EACH ORAL; NORVASC10 MG ORAL; NORVASC5 MG ORAL; OPANA10 MG ORAL; PANTOPRAZOLE SO40 MG; PHENYTOIN SODI100 MG; PLAVIX75 MG ORAL; POTASSIUM CHLO20 ME1; PRIMIDONE50 MG PO; PROTONIX40 MG ORAL; RANITIDINE HCL150 MG ORAL; TRAMADOL HCL50 MG; TRAZODONE HCL100 MG ORAL; TRAZODONE HCL150 MG ORAL; UNOBMED; VALIUM10 MG ORAL; ZESTRIL10 M1 ORAL; ZIPSOR25 MG; ZOLPIDEM TARTRA10 MG; coumadin
[2018-03-23 15:24] VITALS: BP 151/79
--- NOTE | 2018-03-23 16:23 | GI Initial Consult Note ---
History of Present Illness General Date patient seen: March 23, 2018 Time patient seen: 16:14 Referring physician: EMMANUEL Reason for Consultation: GT removal Present Illness HPI 77 year old female patient referred by Dr. Chowdary for GT removal that was placed in December of this year at [facility]. She presents today with c/o of LLQ abdominal pain and irregular BM. In addition, she has left leg pain as well in which she has had an history of fall due to the left knee. The patient had a colonoscopy last year in October as well, in which a large polyp was found. Denies any unintentional weight loss or changes in dietary habits. Patient is a fall risk. Home Meds Active Scripts Lisinopril (LISINOPRIL*) 20 Mg Tablet, 20 MG ORAL BID for 30 Days, TAB Prov:Rod Iqbal MD 11/17/16 Hydralazine HCl (Hydralazine HCl) 50 Mg Tablet, 50 MG ORAL Q8HR for 30 Days, TAB Prov:Rod Iqbal MD 11/17/16 Clonidine HCl (Catapres-Tts 2) 1 Each Patch.tdwk, 1 PATCH TDERMAL QWEEK for 30 Days, PATCH Prov:Rod Iqbal MD 11/17/16 Amlodipine Besylate (Norvasc) 5 Mg Tablet, 5 MG ORAL BID for 30 Days, TAB Prov:Rod Iqbal MD 11/17/16 Clopidogrel Bisulfate* (PLAVIX*) 75 Mg Tablet, 75 MG ORAL DAILY, #30 TAB Prov:Jarrett Perez MD 02/07/15 Reported Medications Diphenoxylate Hcl/Atropine (DIPHENOXYLATE-ATROPINE TABLET) 1 Each Tablet, #30 11/15/16 Phenytoin Sodium Extended* (PHENYTOIN SODIUM EXTENDED*) 100 Mg Capsule, #105 11/15/16 Prochlorperazine (COMPAZINE*) 10 Mg Tablet, #45 11/15/16 Pantoprazole* (PANTOPRAZOLE*) 40 Mg Tablet., #90 11/15/16 Potassium Chloride* (K-DUR*) 20 Meq Tab.er.prt, #30 11/15/16 Carvedilol* (CARVEDILOL*) 12.5 Mg Tablet, #60 11/15/16 Furosemide* (LASIX*) 20 Mg Tablet, #30 11/15/16 Diazepam* (DIAZEPAM*) 10 Mg Tablet, #60 11/15/16 Pregabalin (Lyrica) 25 Mg Cap, ORAL THREE TIMES A DAY, CAP 08/24/15 Hydrocodone Bit/Acetaminophen 5-325* (NORCO 5-325 TABLET*) 1 Each Tablet, 1 TAB ORAL Q4H PRN for For Pain, TAB 08/24/15 Benazepril Hcl* (BENAZEPRIL HCL*) 10 Mg Tablet, ORAL DAILY, TAB 08/24/15 Clopidogrel Bisulfate* (PLAVIX*) 75 Mg Tablet, ORAL DAILY, TAB 08/24/15 Warfarin Sod* (COUMADIN*) 1 Mg Tablet, ORAL DAILY, TAB 08/24/15 Phenytoin Sodium Extended* (DILANTIN*) 100 Mg Capsule, 400 MG ORAL BEDTIME, #60 CAP 0 Refills 06/19/15 Primidone* (MYSOLINE*) 50 Mg Tablet, 50 MG PO BEDTIME, TAB 06/19/15 Nitroglycerin (NITROGLYCERIN) 0.4 Mg Tab.subl, 0.4 MG SL PRN PRN for For Pain, TAB 06/19/15 Docusate Sodium* (COLACE*) 100 Mg Capsule, 100 MG ORAL Q12HR, CAP 06/19/15 Cyproheptadine Hcl (CYPROHEPTADINE HCL) 4 Mg Tablet, 4 MG PO TID, TAB 06/19/15 Al Hydroxide/mg Hydroxide (Mag-Al Plus Suspension) 30 Ml Susp, 30 ML GT Q6HR PRN for Prn Headache/Temp > 101 06/19/15 Warfarin Sod* (COUMADIN*) 6 Mg Tablet, 1 MG ORAL DAILY, TAB 06/19/15 Zolpidem Tartrate* (AMBIEN*) 5 Mg Tablet, 5 MG ORAL BEDTIME PRN for Insomnia, TAB 06/19/15 Ranitidine Hcl* (ZANTAC*) 150 Mg Tablet, 150 MG ORAL TWICE A DAY, TAB 06/19/15 Pregabalin* (LYRICA*) 75 Mg Capsule, 75 MG ORAL THREE TIMES A DAY, CAP 06/19/15 Multivitamin (MULTIVITAMINS) 1 Each Capsule, 1 CAP ORAL DAILY, CAP 06/19/15 Lubiprostone (AMITIZA*) 24 Mcg Capsule, 24 MCG ORAL EVERY 12 HOURS, CAP 06/19/15 Hydrocodone/Acetaminophen (Hydrocodon-Acetaminophn 10-325) 1 Ea Tab, 1 TAB ORAL Q8H PRN for For Pain, #30 TAB 0 Refills 06/19/15 Fluticasone Propionate (Fluticasone Propionate) 1 Sprays Naspr, 1 SPRAY NASAL TWICE A DAY, #16 GM per nostril 06/19/15 Carvedilol (Coreg) 12.5 Mg Tab, 12.5 MG ORAL EVERY 12 HOURS, TAB 06/19/15 Atorvastatin Calcium* (ATORVASTATIN CALCIUM*) 40 Mg Tablet, 40 MG ORAL BEDTIME, TAB 06/19/15 Warfarin Sod* (COUMADIN*) 1 Mg Tablet, ORAL TWICE A DAY, TAB 06/16/15 Phenytoin Sodium Extended* (DILANTIN*) 100 Mg Capsule, 100 MG ORAL THREE TIMES A DAY, #90 CAP 0 Refills 06/16/15 Metoprolol Tartrate* (METOPROLOL TARTRATE*) 50 Mg Tablet, #90 02/05/15 Tramadol Hcl* (ULTRAM*) 50 Mg Tablet, #21 02/05/15 Hydrocodone Bit/Acetaminophen 10-325* (HYDROCODON-ACETAMINOPHN 10-325*) 1 Each Tablet, #120 02/05/15 Diazepam* (DIAZEPAM*) 10 Mg Tablet, #60 02/05/15 Gabapentin* (GABAPENTIN*) 600 Mg Tablet, #90 02/05/15 Carisoprodol* (CARISOPRODOL*) 350 Mg Tablet, #90 02/05/15 Diclofenac Potassium (ZIPSOR) 25 Mg Capsule, #180 02/05/15 Med list reviewed/reconciled: Yes Allergies: Coded Allergies: SHELLFISH DERIVED (Verified Allergy, Mild, 11/15/16) ASPIRIN (Verified Allergy, Unknown, GI UPSET. MD ADVISED PT NOT TO TAKE ANYMORE, 06/12/12) CALCIUM CARBONATE (Verified Allergy, Unknown, ITCHY, REDNESS, 06/12/12) NO KNOWN ALLERGIES (Unverified Allergy, Unknown, 11/02/17) PENICILLINS (Verified Allergy, Unknown, ITCHY, REDNESS, 06/12/12) MORPHINE (Verified Adverse Reaction, Mild, NAUSEA,ALTERED MENTAL STATUS, ITCHY REDNESS, 06/12/12) Patient History History Provided By: Patient, Medical Record [facility] Narrative 1. Hypertension. 2. History of left breast cancer, status post mastectomy and chemotherapy. PAST SURGICAL HISTORY: Significant for: 1. Left mastectomy. 2. Appendectomy. Social History: Denies: smoking, alcohol use, drug use, other Review of Systems All Other Systems: negative except mentioned in HPI Physical Exam Vital Signs Date Time Temp Pulse Resp B/P (MAP) Pulse Ox O2 Delivery O2 Flow Rate FiO2 03/23/18 15:24 98.8 85 18 151/79 97 98.8 Sp02 EP Interpretation: reviewed, normal General Appearance: well appearing, no apparent distress, alert Head: normocephalic EENT: PERRL/EOMI, normal ENT inspection Neck: supple Respiratory: normal breath sounds, no respiratory distress Cardiovascular: normal rate Gastrointestinal: normal inspection, non tender, soft, normal bowel sounds, non -distended Rectal: deferred Genitourinary: no CVA tenderness Musculoskeletal: normal inspection, back normal Neurologic: normal inspection, alert, oriented x3, responsive Psychiatric: normal inspection, judgement/insight normal, memory normal Skin: normal inspection, normal color, no rash, warm/dry, palpation normal, well hydrated Lymphatic: normal inspection, no adenopathy GI: Plan Problems: (1) PEG (percutaneous endoscopic gastrostomy) adjustment/replacement/removal (2) Colonoscopy planned Plan s/p ex-lap lysis of adhesion Nov 2012 dysphagia s/p GT placement >> resolved s/p colonoscopy SUMMARY OF FINDINGS 11/17/16 : 1. Fair colonic prep. See above for details. 2. One colonic polyp removed, 1.4 cm. 3. Internal hemorrhoids. plan for colonoscopy scheduled 03/27/18. - CLD & (Nulytely/Suprep/Movi-Prep) prep instructions given and acknowledged by patient. - NPO @ MT day prior procedure explained. will remove GT on procedure date. Discussed with Dr. Murray. Thank you for this patient referral, we will follow. The patient was seen and examined at bedside and all new and available data was reviewed in the patients chart. I agree with the above findings, impression and plan. (Patient seen earlier today. Signature stamp does not reflect patient encounter time.). - MD Cherelle [facility]En[facility] ROOM CUSTODIAN March 23, 2018 16:23
== END 2018-03-23 14:40 | disposition home or self-care (01) ==
LOC: PAN 14:17
DX: R10.32 Left lower quadrant pain (principal); Z93.1 Gastrostomy status; Z91.81 History of falling; Z86.010 Personal history of colon polyps; Z79.01 Long term (current) use of anticoagulants; Z88.6 Allergy status to analgesic agent; Z88.0 Allergy status to penicillin; I10 Essential (primary) hypertension; Z85.3 Personal history of malignant neoplasm of breast; Z90.12 Acquired absence of left breast and nipple; Z90.89 Acquired absence of other organs
CPT/HCPCS: 99212

== ENCOUNTER 2018-03-27 07:11 | Day surgery (SDC) | payer MEDICARE, MEDICAID ==
[2018-03-27] VITALS (10 sets, daily range): BP systolic 109–148; BP diastolic 47–79
[~2018-03-27] VITALS: Ht 165.1 cm; Wt 81.6 kg
[~2018-03-27 07:11] MED LIST changes: -GABAPENTIN600 MG; +GABAPENTIN600 MG PO; -METOPROLOL TART50 M1; +METOPROLOL TART50 M1 PO; -PHENYTOIN SODI100 MG; +PHENYTOIN SODI100 MG PO
--- NOTE | 2018-03-27 08:25 | Pre-Procedure Note/Attestation ---
Pre-Procedure Note/Attestation Complete Prior to Procedure Planned Procedure: not applicable Procedure Narrative: colonoscopy Indications for Procedure Pre-Operative Diagnosis: screening Attestation I attest that I discussed the nature of the procedure; its benefits; risks and complications; and alternatives (and the risks and benefits of such alternatives ), prior to the procedure, with the patient (or the patient's legal marketing development representative). I attest that, if there was a reasonable possibility of needing a blood transfusion, the patient (or the patient's legal marketing development representative) was given the [facility] standardized written summary, pursuant to the [place] Blood Safety Act ([place] Health and Safety Code # 1645, as amended). I attest that I re-evaluated the patient just prior to the surgery and that there has been no change in the patient's H&P, except as documented below: Murray Murray MD Mar 27, 2018 08:25
--- NOTE | 2018-03-27 08:26 | Short Stay Surgery H&P ---
History of Present Illness History of Present Illness Chief Complaint see consult note HPI Tina Garcia is a 77 year old female who was admitted on for Colon Polyp Patient History Allergies: Coded Allergies: SHELLFISH DERIVED (Verified Allergy, Mild, 11/15/16) CALCIUM CARBONATE (Verified Allergy, Unknown, ITCHY, REDNESS, 06/12/12) PENICILLINS (Verified Allergy, Unknown, ITCHY, REDNESS, 06/12/12) MORPHINE (Verified Adverse Reaction, Mild, NAUSEA,ALTERED MENTAL STATUS, ITCHY REDNESS, 06/12/12) ASPIRIN (Verified Adverse Reaction, Unknown, GI UPSET. MD ADVISED PT NOT TO TAKE ANYMORE, 03/27/18) Medication History Scheduled Amlodipine Besylate (Norvasc), 5 MG ORAL BID Atorvastatin Calcium* (Atorvastatin Calcium*), 40 MG ORAL BEDTIME, (Reported) Benazepril Hcl* (Benazepril Hcl*), Unknown Dose ORAL DAILY, (Reported) Carvedilol (Coreg), 12.5 MG ORAL EVERY 12 HOURS, (Reported) Clonidine HCl (Catapres-Tts 2), 1 PATCH TDERMAL QWEEK Clopidogrel Bisulfate* (Plavix*), 75 MG ORAL DAILY Clopidogrel Bisulfate* (Plavix*), Unknown Dose ORAL DAILY, (Reported) Cyproheptadine Hcl (Cyproheptadine Hcl), 4 MG PO TID, (Reported) Docusate Sodium* (Colace*), 100 MG ORAL Q12HR, (Reported) Fluticasone Propionate (Fluticasone Propionate), 1 SPRAY NASAL TWICE A DAY, ( Reported) Hydralazine HCl (Hydralazine HCl), 50 MG ORAL Q8HR Lisinopril (Lisinopril*), 20 MG ORAL BID Lubiprostone (Amitiza*), 24 MCG ORAL EVERY 12 HOURS, (Reported) Multivitamin (Multivitamins), 1 CAP ORAL DAILY, (Reported) Phenytoin Sodium Extended* (Dilantin*), 100 MG ORAL THREE TIMES A DAY, (Reported ) Phenytoin Sodium Extended* (Dilantin*), 400 MG ORAL BEDTIME, (Reported) Pregabalin (Lyrica), Unknown Dose ORAL THREE TIMES A DAY, (Reported) Pregabalin* (Lyrica*), 75 MG ORAL THREE TIMES A DAY, (Reported) Primidone* (Mysoline*), 50 MG PO BEDTIME, (Reported) Ranitidine Hcl* (Zantac*), 150 MG ORAL TWICE A DAY, (Reported) Warfarin Sod* (Coumadin*), Unknown Dose ORAL TWICE A DAY, (Reported) Warfarin Sod* (Coumadin*), 1 MG ORAL DAILY, (Reported) Warfarin Sod* (Coumadin*), Unknown Dose ORAL DAILY, (Reported) Scheduled PRN Al Hydroxide/mg Hydroxide (Mag-Al Plus Suspension), 30 ML GT Q6HR PRN for Prn Headache/Temp > 101, (Reported) Hydrocodone Bit/Acetaminophen 5-325* ([place] 5-325 Tablet*), 1 TAB ORAL Q4H PRN for For Pain, (Reported) Hydrocodone/Acetaminophen (Hydrocodon-Acetaminophn 10-325), 1 TAB ORAL Q8H PRN for For Pain, (Reported) Nitroglycerin (Nitroglycerin), 0.4 MG SL PRN PRN for For Pain, (Reported) Zolpidem Tartrate* (Ambien*), 5 MG ORAL BEDTIME PRN for Insomnia, (Reported) Miscellaneous Medications Carisoprodol* (Carisoprodol*), (Reported) Carvedilol* (Carvedilol*), (Reported) Diazepam* (Diazepam*), (Reported) Diazepam* (Diazepam*), (Reported) Diclofenac Potassium (Zipsor), (Reported) Diphenoxylate Hcl/Atropine (Diphenoxylate-Atropine Tablet), (Reported) Furosemide* (Lasix*), (Reported) Gabapentin* (Gabapentin*), (Reported) Hydrocodone Bit/Acetaminophen 10-325* (Hydrocodon-Acetaminophn 10-325*), ( Reported) Metoprolol Tartrate* (Metoprolol Tartrate*), (Reported) Pantoprazole* (Pantoprazole*), (Reported) Phenytoin Sodium Extended* (Phenytoin Sodium Extended*), (Reported) Potassium Chloride* (K-Dur*), (Reported) Prochlorperazine (Compazine*), (Reported) Tramadol Hcl* (Ultram*), (Reported) Physical Exam Vital Signs Last Vital Signs Date Time Temp Pulse Resp B/P (MAP) Pulse Ox O2 Delivery O2 Flow Rate FiO2 03/27/18 08:19 97.8 110 18 143/76 96 Room Air 97.8 Plan Attestation Are the patient's medical conditions optimized for surgery? Murray Murray MD Mar 27, 2018 08:26
--- NOTE | 2018-03-27 08:33 | Anethesia Preoperative Eval ---
Anesthesia Pre-op PMH/ROS General Date of Evaluation: Mar 27, 2018 Time of Evaluation: 08:29 Anesthesiologist: garrett ASA Score: ASA 4 Mallampati Score Class I : Soft palate, uvula, fauces, pillars visible Class II: Soft palate, uvula, fauces visible Class III: Soft palate, base of uvula visible Class IV: Only hard plate visible Mallampati Classification: Class II Surgeon: garett Diagnosis: colon polyps Surgical Procedure: colonoscopy w/ removal of polyps Anesthesia History: none Social History: smoking - nonsmoker Family History: no anesthesia problems Allergies: Coded Allergies: SHELLFISH DERIVED (Verified Allergy, Mild, 11/15/16) CALCIUM CARBONATE (Verified Allergy, Unknown, ITCHY, REDNESS, 06/12/12) PENICILLINS (Verified Allergy, Unknown, ITCHY, REDNESS, 06/12/12) MORPHINE (Verified Adverse Reaction, Mild, NAUSEA,ALTERED MENTAL STATUS, ITCHY REDNESS, 06/12/12) ASPIRIN (Verified Adverse Reaction, Unknown, GI UPSET. ADVISED PT NOT TO TAKE ANYMORE, 03/27/18) Medications: see eMAR Past Medical History Cardiovascular: Reports: HTN Gastrointestinal/Genitourinary: Reports: GERD Neurologic/Psychiatric: Reports: CVA, depression/anxiety HEENT: Reports: cataract (L), cataract (R) Hematology/Immune: Reports: anemia, other - cancer Anesthesia Pre-op Phys. Exam Physician Exam Last Vital Signs Date Time Temp Pulse Resp B/P (MAP) Pulse Ox O2 Delivery O2 Flow Rate FiO2 03/27/18 08:19 97.8 110 18 143/76 96 Room Air 97.8 Constitutional: NAD Neurologic: CN 2-12 intact Cardiovascular: RRR Respiratory: CTA Gastrointestinal: S/NT/ND Airway Exam Mallampati Score: Class II MO: limited Neck: short TMD: 2fb ROM: limited Teeth: missing Anesthesia Pre-op A/P Risk Assessment & Plan Assessment: asa4 Plan: mac Status Change Before Surgery: No Pre-Antibiotics Drug: Kylah Munoz MD Mar 27, 2018 08:33
[2018-03-27] MEDS ORDERED: fentaNYL 100 mcg/2 mL IV PRN (08:45)
[2018-03-27] MEDS ORDERED: Midazolam 2mg/2ml Inj IVP PRN (08:45)
[2018-03-27] MEDS ORDERED: NAMENDA10 MG ORAL (08:45)
[2018-03-27] MEDS ORDERED: DiphenhydrAMINE 50mg/ml Inj IVP PRN (08:45)
[2018-03-27] MEDS ORDERED: Atropine Inj 1mg/10ml Syr IV PRN (08:45)
[2018-03-27] MEDS ORDERED: Lidocaine 1% MPF 10mg/ml 5ml ONE (09:30)
[2018-03-27] MEDS ORDERED: Propofol 200mg/20ml IV ONE (09:30)
--- NOTE | 2018-03-27 10:02 | Endoscopy Procedure Note ---
Endoscopy Procedure Note General Indication for Procedure: colon polyp Procedures Performed: colonoscopy Operative Findings/Diagnosis: one polyp Specimen: yes Pt Tolerated Procedure Well: Yes Estimated Blood Loss: none Anesthesia Anesthesiologist: garrett Anesthesia: MAC Inserted Devices Implant(s) used?: No Quality Quality of Bowel Preparation: Good Did scope reach the cecum?: Yes Was there any complications?: No GI Core Measures 50 yrs or older w/o bx or poly: No 10yrs. F/U not recommended: Yes If not recommended, why?: Above average risk 10 yrs. F/U needed: Yes 18 years or older w/prev. colo: Yes <3yrs. since last colonoscopy: Yes Med reason:<3 yrs.: Inadequate Prep Murray Murray MD Mar 27, 2018 10:02
[2018-03-27] MEDS ORDERED: Midazolam 2mg/2ml Inj IVP SCH (10:15)
--- NOTE | 2018-03-27 11:26 | Immediate Post-Op Evaluation ---
Immediate Post-Op Evalulation Immediate Post-Op Evalulation Procedure: colonoscopy/removal of colon polyps Date of Evaluation: Mar 27, 2018 Time of Evaluation: 10:12 IV Fluids: 400ml 0.9ns Blood Products: none Estimated Blood Loss: negligible Blood Pressure Systolic: 109 Blood Pressure Diastolic: 47 Pulse Rate: 101 Respiratory Rate: 18 O2 Sat by Pulse Oximetry: 99 Temperature (Fahrenheit): 98.4 Pain Score (1-10): 0 Nausea: No Vomiting: No Complications none Patient Status: awake, reacts, patent Hydration Status: adequate Drug: Kylah Munoz MD Mar 27, 2018 11:26
--- NOTE | 2018-03-27 11:28 | 48 Hour Post Anesthesia Eval ---
Post Anesthesia Evaluation Procedure: colonoscopy/removal of colon polyps Date of Evaluation: Mar 27, 2018 Time of Evaluation: 10:14 Blood Pressure Systolic: 116 0: 71 Pulse Rate: 98 Respiratory Rate: 18 Temperature (Fahrenheit): 98.4 O2 Sat by Pulse Oximetry: 100 Airway: patent Nausea: No Vomiting: No Pain Intensity: 0 Hydration Status: adequate Cardiopulmonary Status: stable Mental Status/LOC: patient returned to baseline Post-Anesthesia Complications: none Follow-up care needed: N/A Kylah Raymond MD Mar 27, 2018 11:28
[2018-03-27] MEDS ORDERED: FAMOTIDINE10 MG ORAL (15:43)
[2018-03-27] MEDS ORDERED: FERROUS SULFAT325 MG ORAL (16:01)
[2018-03-27] MEDS ORDERED: LEVETIRACETAM500 MG ORAL (16:02)
--- NOTE | 2018-03-27 16:30 | Procedure Note ---
DATE OF PROCEDURE: 03/27/2018 SURGEON: Murray Murray M.D. ANESTHESIA: Per Dr. Raymond. PROCEDURE: Colonoscopy with snare polypectomy and also G-tube removal. INSTRUMENT: Olympus adult flexible colonoscope. INDICATION: History of colonic polyp with dysplasia in it, poor colonic prep over a year ago. The procedure, risks, benefits, and possible consequences, including hemorrhage, aspiration, perforation and infection, and alternative treatments, were explained to the patient/legal guardian by Dr. Murray Murray and the patient/legal guardian understood and accepted these risks. DESCRIPTION OF PROCEDURE: After informed consent was obtained and the patient was adequately sedated, first rectal exam was performed, which was normal. Then, the scope was advanced from the rectum into the cecum documented by appendix orifice, ileocecal valve, and right upper quadrant palpation. Quality of prep was good. The patient had one sessile polyp in the proximal ascending colon roughly measured about 9 mm removed with the hot snare polypectomy technique. The rest of the colonic exam was grossly within normal limits. Retroflexion of rectum showed evidence of few internal hemorrhoids, small. After attention colonoscopy, we turned the patient on her back. She had a G-tube in place, which we wanted to be removed, so we pulled the G-tube out and placed a 4 x 4 on top. SUMMARY OF FINDINGS: 1. One colonic polyp removed. See above for details. 2. Internal hemorrhoids. 3. Status post G-tube removal. RECOMMENDATIONS: 1. No shower for 24 hours. 2. Repeat colonoscopy in 5 years. 3. Follow pathology. Murray Murray M.D. DR: NATASHA JOB#: [id number] CC:
== END 2018-03-27 11:40 | disposition home or self-care (01) ==
LOC: GAS 07:11
DX: K63.5 Polyp of colon (principal); K64.8 Other hemorrhoids; Z88.6 Allergy status to analgesic agent; Z88.0 Allergy status to penicillin; Z91.013 Allergy to seafood; Z79.01 Long term (current) use of anticoagulants; I10 Essential (primary) hypertension; K21.9 Gastro-esophageal reflux disease without esophagitis; F32.9 Major depressive disorder, single episode, unspecified; F41.9 Anxiety disorder, unspecified; Z86.73 Personal history of transient ischemic attack (TIA), and cerebral infarction without residual deficits; Z85.9 Personal history of malignant neoplasm, unspecified
CPT/HCPCS: 45384; 93005; J2250; J2704; 94003; 94150